=== PATIENT | male | born 1960 | race Hispanic/Latino ===

== ENCOUNTER 2022-01-30 17:43 | Inpatient (IN) ==
--- NOTE | 2022-01-30 18:11 | Internal Med History&Physical ---
HPI History of Present Illness Patient information: Note initiated : 01/30/22 at 6:09 pm Service Date, if different from initiated Date: [] Patient: Mike Moe a 61 y/o M admitted on for Fluid Overload/COVID +. Chief Complaint: [ESRD on hemodialysis] Chief complaint: ESRD on hemodialysis History of present illness: Mr. Moe is a 61 year old M history of end-stage renal disease on hemodialysis Friday, presenting with need for hemodialysis. His last dialysis session was 2 days ago on Friday, January 28, 2022. He was also being screened for COVID-pneumonia and he was actually screened at positive. Earlier today when he presented to the outpatient dialysis center for hemodialysis sections, he was being denied entry and was instead told to come to the hospital for dialysis sections. He ended up going to [facility] but they did not have dialysis capacity so they request patient to be transferred to our facility for hemodialysis. Of note, patient is currently on up to 4 L/min of supplemental oxygen's. Hospice Home Care Coordinator Dr. Rosa was contacted and he is willing to assist with hemodialysis tomorrow. Constitutional Constitutional: Absent chills, excessive sweating, fatigue, fever(s) or weakness EENT Eyes: Absent blurry vision, change in vision, loss of vision or other visual d isturbances Ears: Absent decreased hearing or tinnitus Nose, mouth and throat: Absent abnormal hearing, dry mouth, headache(s), nasal congestion or sore throat Cardiovascular Cardiovascular: Absent chest pain, chest pain at rest, edema, irregular heart rhythm or palpatations Respiratory Respiratory: Present dyspnea; Absent cough or wheezing Gastrointestinal Gastrointestinal: Absent abdominal pain, constipation, diarrhea, nausea or vomiting Musculoskeletal Musculoskeletal: Absent back pain, deformity, limited range of motion, muscle cramps, muscle weakness or numbness Integumentary Integumentary: Absent lesions, rash or wounds Neurological Neurological: Absent focal weakness, headache(s) or numbness Psychiatric Psychiatric: Absent anxiety, depression or hallucinations PFSH PFSH All Active Problems (Updated 01/30/22 @ 18:16 by Zach Murphy MD) COVID (Acute) ESRD on hemodialysis (Acute) EXAM Constitutional General appearance: cooperative and no acute distress Head Head exam: Present atraumatic and normocephalic Eye Eye exam: Present EOMI and PERRL ENT ENT exam: Present mucous membranes moist, normal exam and normal external ear exam Neck Neck exam: Present normal inspection; Absent lymphadenopathy, tenderness or thyromegaly Respiratory Respiratory exam: Present rhonchi; Absent accessory muscle use, respiratory distress or wheezes Cardiovascular Cardiovascular exam: Present normal rate and rhythm; Absent JVD GI/Abdominal GI/Abdominal exam: Present normal bowel sounds and soft; Absent organomegaly or tenderness Rectal Rectal exam: Present deferred Extremities Exam Extremities exam: Present full ROM, normal capillary refill and normal inspection; Absent tenderness Neurological Exam Neurological exam: Present alert, CN II-XII intact and oriented X3; Absent motor sensory deficit Psychiatric Psychiatric exam: Present normal affect and normal mood; Absent anxious or depressed Skin Skin exam: Present dry and intact A/P Assessment and plan (1) ESRD on hemodialysis: Status: Acute (2) COVID: Status: Acute Narrative A/P Narrative: Assessment and Plans: 1. ESRD on hemodialysis: Inpatient med surg telemetry Hospice Home Care Coordinator Dr. Rosa consulted for dialysis needs CMP in the morning to trend kidney functions and electrolyte levels framing manager 2. CoVID pneumonia: Isolation: airborne and contact Supplemental oxygen level Dexamethasone Remdesivir GI ppx: not currently indicated DVT ppx: Heparin Code status: Full Prognosis: guarded Disposition: inpatient med surg telemetry Time Spent With Patient Time: Total time spent is greater than 50% in coordination of care (as documented) at patient's floor/unit and/or counseling patient: Total time spent with greater than 50% in coordination of care (as documented) at patient's floor/unit and/or counseling patient:: 50 - 70 minutes
[2022-01-30] MEDS ORDERED: ACETAMINOPHEN 325 MG TABLET PO PRN (22:46)
[2022-01-30] MEDS ORDERED: IPRATROPIUM/ALBUTEROL 3 ML AMPUL.NEB NEB PRN (22:46)
[2022-01-30] MEDS ORDERED: SENNOSIDES 1 TABLET PO SCH (22:46)
[2022-01-30] MEDS ORDERED: DOCUSATE SODIUM 100 MG CAPSULE PO SCH (22:46)
[2022-01-30] MEDS ORDERED: REMDESIVIR 200 MG in 0.9 % SODIUM CHLORIDE 250 ML IV ONE (22:46)
[2022-01-30] MEDS ORDERED: ONDANSETRON 4 MG/2 ML VIAL IV PRN (22:46)
[2022-01-30] MEDS ORDERED: guaiFENesin/DEXTROMETHORPHAN ORAL SOL PO PRN (22:46)
[2022-01-30] MEDS ORDERED: HEPARIN 5,000 UNIT/ML VIAL ONE (23:51)
[2022-01-30] MEDS: NICOTINE 21 MG PATCH TOPICAL SCH (23:51)
[2022-01-30] MEDS: HEPARIN 5,000 UNIT/ML VIAL SQ SCH (23:52)
[2022-01-30] MEDS: LOPERAMIDE 2 MG CAPSULE PO PRN (23:52)
[2022-01-30] MEDS ORDERED: LOPERAMIDE 2 MG CAPSULE PO ONE (23:52)
[2022-01-30] MEDS ORDERED: NICOTINE 21 MG PATCH ONE (23:52)
[2022-01-30] MEDS: 0.9 % SODIUM CHLORIDE 10 ML SYRINGE IV SCH (23:52)
[2022-01-31] MEDS ORDERED: LOPERAMIDE 2 MG CAPSULE PO ONE (00:14)
[2022-01-31] MEDS: LOPERAMIDE 2 MG CAPSULE PO PRN (00:14)
[2022-01-31] MEDS: 0.9 % SODIUM CHLORIDE 10 ML SYRINGE IV SCH ×3 (05:51→20:30)
--- NOTE | 2022-01-31 06:12 | Nephrology Consult Note ---
HPI Data of Consult Patient: new to practice Consult date: 01/31/22 Requesting physician: Zach Murphy Primary Care Provider: PCP No Consult Narrative Patient Information: Note initiated : 01/31/22 at 6:10 am Patient: Mike Moe 61 y/o M admitted on 01/30/22 for Fluid Overload/COVID +. Chief Complaint: Shortness of breath Mike Moe is a 61-year-old male with end stage renal disease on hemodialysis admitted on 01/30/22. He is on hemodialysis Friday at [facility]. His last dialysis was on Friday (01/28/2022). He was tested positive for COVID and denied entry to his outpatient dialysis center. He presented to [facility] ED. He was transferred to our facility for hemodialysis. Nephrology consultation was requested for end stage renal disease. Chief complaint: Shortness of breath Reason for consult: End stage renal disease on hemodialysis cc:: CC: Zach Murphy MD Constitutional Constitutional: Present fatigue and weakness EENT Nose, mouth and throat: Absent nasal congestion or sore throat Cardiovascular Cardiovascular: Absent chest pain or palpatations Respiratory Respiratory: Present cough and dyspnea Gastrointestinal Gastrointestinal: Absent nausea or vomiting Integumentary Integumentary: Absent rash or wounds Neurological Neurological: Present weakness; Absent confusion Psychiatric Psychiatric: Absent anxiety or panic attacks Hematologic/Lymphatic Hematologic/Lymphatic: Absent easy bleeding Allergic/Immunologic Allergic/Immunologic: Absent tongue swelling or uticaria PFSH PFSH All Active Problems (Updated 01/31/22 @ 06:10 by Brian Rosa MD) Hyperkalemia (Acute) COVID (Acute) ESRD on hemodialysis (Chronic) MEDS/ALLERGIES Home Medications and Allergies Home Medications Medication Instructions Recorded Confirmed Type acetaminophen 500 mg tablet 1,000 mg PO BID 01/31/22 01/31/22 History blood sugar diagnostic 01/31/22 01/31/22 History calcitriol 0.5 mcg capsule 0.5 mcg PO DAILY 01/31/22 01/31/22 History calcium carbonate 500 mg calcium 1,000 mg PO DAILY 01/31/22 01/31/22 History (1,250 mg) chewable tablet cetirizine 5 mg tablet 5 mg PO DAILY 01/31/22 01/31/22 History clopidogrel 75 mg tablet 75 mg PO DAILY 01/31/22 01/31/22 History epoetin quan 10,000 unit/mL 10,000 unit IV 3XW 01/31/22 01/31/22 History injection solution gabapentin 100 mg capsule 100 mg PO TID 01/31/22 01/31/22 History loperamide 2 mg capsule 4 mg PO BID 01/31/22 01/31/22 History melatonin 3 mg tablet 3 mg PO HS PRN 01/31/22 01/31/22 History midodrine 2.5 mg tablet 2.5 mg PO TID 01/31/22 01/31/22 History omeprazole 20 mg capsule,delayed 20 mg PO BID 01/31/22 01/31/22 History release pramipexole 0.5 mg tablet 0.5 mg PO TID 01/31/22 01/31/22 History ropinirole 0.5 mg tablet 0.5 mg PO TID 01/31/22 01/31/22 History rosuvastatin 20 mg tablet 20 mg PO QHS 01/31/22 01/31/22 History sertraline 50 mg tablet 150 mg PO QDAY 01/31/22 01/31/22 History sevelamer carbonate 800 mg tablet 800 mg PO DAILY 01/31/22 01/31/22 History (Renvela) tacrolimus 1 mg capsule, 2 mg PO Q12H 01/31/22 01/31/22 History immediate-release trazodone 50 mg tablet 50 mg PO QHS 01/31/22 01/31/22 History Allergies Allergy/AdvReac Type Severity Reaction Status Date / Time vancomycin Allergy Intermediate Hives Verified 01/30/22 22:59 Physical Examination Vital Signs Vital signs: Temp Pulse Resp BP Pulse Ox 98.7 F 66 23 H 139/65 97 01/31/22 04:27 01/31/22 04:27 01/31/22 04:27 01/31/22 04:27 01/31/22 04:27 General Appearance General appearance: appears started age and chronically ill EENT EENT: mucous membranes dry Respiratory Respiratory: course breath sounds Cardiovascular Cardiology: no edema Gastrointestinal Gastrointestinal: no tenderness Integumentary Integumentary: no rash Neurologic Neurologic: no focal deficit and alert and oriented x3 Musculoskeletal Musculoskeletal: deformities (bilateral amputations) Psychiatric Psychiatric: mood/affect appropriate and cooperative Results Lab Results Result Diagrams: 01/31/22 05:55 01/31/22 05:55 A/P Assessment and plan (1) ESRD on hemodialysis: Assessment and plan: Mike Moe is a 61-year-old male with end stage renal disease on hemodialysis admitted on 01/30/22. He is on hemodialysis Friday at [facility]. His last dialysis was on Friday (01/28/2022). [facility] [place] to [facility]. He was transferred to our facility for hemodialysis. Nephrology consultation was requested for end stage renal disease. End stage renal disease on hemodialysis. Suspected fluid overload. Hyperkalemia. Metabolic acidosis. Hyperphosphatemia. Left arm AV fistula. Chronic anemia due to ESRD. Liver transplant at [facility]. Recommendations/Plan: Renvela 800 mg PO TID with meals and Calcium Carbonate 500 mg PO TID with meals for hyperphosphatemia. Midodrine 5 mg PO PRN with hemodialysis for hypotension. tacrolimus 2 mg twice every 12 hours for liver transplant. Aranesp 100 mcg SC will be given if Hb stays below 10. Hemodialysis today and tomorrow. Status: Chronic Time Spent With Patient Time: Total time spent is greater than 50% in coordination of care (as documented) at patient's floor/unit and/or counseling patient:
[2022-01-31 07:32] LABS: ALT/SGPT 7 U/L (<40); AST/SGOT 12 U/L (<40); Albumin 3.3 gm/dL (3.2-5.2); Albumin/Globulin Ratio 0.9 (1.0-2.3); Alkaline Phosphatase 74 U/L (39-117); Bilirubin,Total 0.5 mg/dL (0.1-1.0); Blood Urea Nitrogen 35 mg/dL (6-20); Calcium 8.4 mg/dL (8.6-10.4); Carbon Dioxide 21 mmol/L (22-30); Chloride 97 mmol/L (96-108); Globulin 3.8 gm/dL (2.2-3.7); Glomerular Filtration Rate 6; Glucose 89 mg/dL (70-105); Phosphorous 8.3 mg/dL (2.5-4.5)
[2022-01-31 08:54] LABS: Basophils # (Auto) 0.01 K/mcL (0.00-0.30); Basophils % (Auto) 0.3 % (0.0-2.0); Eosinophils # (Auto) 0 K/mcL (0.00-0.70); Eosinophils % (Auto) 0 % (0.0-7.0); Hematocrit 31.5 % (40.1-51.0); Hemoglobin 9.4 g/dL (13.7-17.5); Lymphocytes # (Auto) 0.47 K/mcL (1.50-4.80); Lymphocytes % (Auto) 14.2 % (15.5-49.0); Mean Cell Volume 106.4 fL (80.0-100.0); Mean Corpuscular HGB Conc 29.8 g/dL (31.0-36.0); Mean Platelet Volume 11.8 fL (7.4-10.4); Monocytes # (Auto) 0.28 K/mcL (0.10-0.90); Monocytes % (Auto) 8.5 % (1.0-12.0); Platelet Count 72 K/mcL (140-440); RBC 2.96 M/mcL (4.63-6.08); WBC 3.3 K/mcL (4.5-11.0)
[2022-01-31] MEDS ORDERED: MIDODRINE 5 MG TABLET PO PRN (09:43)
[2022-01-31] MEDS: HEPARIN 5,000 UNIT/ML VIAL SQ SCH ×2 (09:51→20:27)
[2022-01-31] MEDS ORDERED: MELATONIN 3 MG TABLET PO PRN (10:57)
[2022-01-31] MEDS ORDERED: EPOETIN ALFA 10000 UNIT/ML IV SCH (11:00)
[2022-01-31] MEDS ORDERED: TACROLIMUS 1 MG CAPSULE PO SCH (11:00)
--- NOTE | 2022-01-31 11:03 | Internal Med Progress Note ---
SUBJECTIVE Subjective Patient information: Note initiated : 01/31/22 at 10:59 am Service Date, if different from initiated Date: [] Patient: Mike Moe a 61 y/o M admitted on 01/30/22 for Fluid Overload/COVID +. Chief Complaint: [] Interval history: History of present illness: Mr. Moe is a 61 year old M history of end-stage renal disease on hemodialysis Friday, presenting with need for hemodialysis. His last dialysis session was 2 days ago on Friday, January 28, 2022. He was also being screened for COVID-pneumonia and he was actually screened at positive. Earlier today when he presented to the outpatient dialysis center for hemodialysis sections, he was being denied entry and was instead told to come to the hospital for dialysis sections. He ended up going to [facility] but they did not have dialysis capacity so they request patient to be transferred to our facility for hemodialysis. Of note, patient is currently on up to 4 L/min of supplemental oxygen's. Activity Aid Dr. Rosa was contacted and he is willing to assist with hemodialysis tomorrow. 01/31: Afebrile overnight. Patient is currently on 5 L/min of supplemental oxygen. Patient is currently receiving hemodialysis. Patient is committing of shortness of breath. He is complaining of productive cough with clear sputum. He is committing of shaking chills. He denies any fever or diaphoresis. He denies any respiratory wheezings. Continue hemodialysis today and tomorrow as per motor vehicle licence examiner. Continue remdesivir and dexamethasone together with supplemental oxygen for treatment of COVID-pneumonia. Constitutional Vitals: Vital Signs Temp Pulse Resp BP Pulse Ox 37.0 C 82 23 H 173/78 98 01/31/22 08:00 01/31/22 08:01 01/31/22 08:01 01/31/22 08:00 01/31/22 08:01 Period Temp Pulse Resp BP Sys/Ludwig Pulse Ox Last 24 Hr 37.0 C-37.1 C 64-82 16-46 136-173/65-78 80-100 Intake and Output 01/30/22 01/31/22 01/31/22 21:59 05:59 13:59 Intake Total 300 Output Total 0 Balance 300 Weight 68.765 kg Intake & Output: Intake & Output 01/30/22 01/31/22 01/31/22 21:59 05:59 13:59 Intake Total 300 Output Total 0 Balance 300 Weight 68.765 kg Intake: IV 250 Veklury 200 mg In Sodium 250 Chloride 0.9% 250 ml @ 500 mls/ hr IV ONCE ONE Rx#:[id number] Oral 50 Output: Void Amount 0 # of times incontinent of urine 0 Other: Meal Breakfast Percent of Meal Consumed 100% Feeding Ability Assist with Tray Set Up Stool Size Large Stool Color Brown Dre Colored Stool Consistency Liquid Loose # Voids 0 # of times incontinent of 1 Bowels Head Head exam: Present atraumatic and normal inspection Eye Eye exam: Present normal appearance ENT ENT exam: Present mucous membranes moist, normal exam and normal external ear exam Additional comments: Nasal cannula in place Neck Neck exam: Present normal inspection Respiratory Respiratory exam: Present rhonchi; Absent wheezes Cardiovascular Cardiovascular exam: Present normal rate and rhythm GI/Abdominal GI/Abdominal exam: Present normal bowel sounds Extremities Exam Extremities exam: Present full ROM; Absent normal inspection Additional comments: Bilateral AKA Back Exam Back exam: Present normal inspection Neurological Exam Neurological exam: Present alert and oriented X3 Skin Skin exam: Present intact and warm OBJ DATA Labs CBC & Chem 7: 01/31/22 05:55 01/31/22 05:55 Labs: Abnormal Lab Results 01/31/22 01/31/22 05:55 05:55 WBC 3.3 L RBC 2.96 L Hgb 9.4 L Hct 31.5 L MCV 106.4 H MCHC 29.8 L RDW 16.0 H Plt Count 72 L MPV 11.8 H Lymph % (Auto) 14.2 L Lymph # (Auto) 0.47 L Potassium 5.4 H Carbon Dioxide 21 L BUN 35 H Creatinine 8.9 H* Calcium 8.4 L Phosphorus 8.3 H* Globulin 3.8 H Albumin/Globulin Ratio 0.9 L Meds: Medications Acetaminophen (Acetaminophen 325 Mg Tablet) 650 mg PO Q6HP PRN; Protocol PRN Reason: Per Pain Protocol/Fever > 101 Albuterol/Ipratropium (Ipratropium/Albuterol 3 Ml Ampul.Neb) 3 ml NEB Q4HRT PRN PRN Reason: Wheezing Calcium Carbonate/Glycine (Calcium Carbonate 1,250 Mg/5 Ml Oral.Susp) 500 mg PO TID ERINN Dexamethasone (Dexamethasone 4 Mg Tablet) 6 mg PO DAILY [facility] Guaifenesin (Guaifenesin/Dextromethorphan Oral Zehra) 10 ml PO Q4HP PRN PRN Reason: Cough Heparin Sodium (Porcine) (Heparin 5,000 Unit/Ml Vial) 5,000 unit SQ Q12 [facility] Last Admin: 01/31/22 09:51 Dose: Not Given Documented by: REMDESIVIR 100 mg/ Sodium (Chloride) 250 mls @ 500 mls/hr IV Q24H [facility] Stop: 02/07/22 14:59 Loperamide HCl (Loperamide 2 Mg Capsule) 2 mg PO PRN PRN PRN Reason: Diarrhea Last Admin: 01/31/22 00:14 Dose: 2 mg Documented by: Midodrine (Midodrine 5 Mg Tablet) 5 mg PO PRN PRN PRN Reason: Hypotension Nicotine (Nicotine 21 Mg Patch) 21 mg TOPICAL DAILY@1000 ERINN Last Admin: 01/30/22 23:51 Dose: 21 mg Documented by: Ondansetron HCl (Ondansetron 4 Mg/2 Ml Vial) 4 mg IV Q6HP PRN PRN Reason: Nausea And Vomiting Sevelamer Carbonate (Sevelamer 800 Mg Tablet) 800 mg PO TIDCC [facility] Sodium Chloride (0.9 % Sodium Chloride 10 Ml Syringe) 10 ml IV Q8 [facility] Last Admin: 01/31/22 05:51 Dose: 10 ml Documented by: Tacrolimus (Tacrolimus 1 Mg Capsule) 2 mg PO Q12 [facility] Trazodone HCl (Trazodone Hcl 50 Mg Tablet) 25 mg PO HSP PRN PRN Reason: Insomnia A/P Assessment and plan (1) ESRD on hemodialysis: Status: Chronic (2) COVID: Status: Acute Narrative A/P Narrative: Assessment and Plans: 1. ESRD on hemodialysis: Inpatient med surg telemetry Activity Aid Dr. Rosa consulted for dialysis needs, hemodialysis today and tomorrow CMP in the morning to trend kidney functions and electrolyte levels clinical manager 2. CoVID pneumonia: Isolation: airborne and contact Supplemental oxygen therapy, currently at 5L/min Dexamethasone Remdesivir 3. Hyperkalemia: Activity Aid Dr. Rosa consulted for dialysis needs, hemodialysis today and tomorrow CMP in the morning to trend potassium level 4. Anemia, macrocytic normochromic: cbc w/ auto diff in the morning to trend H/H GI ppx: PO PPI from home regimen DVT ppx: Heparin Code status: Full Prognosis: guarded Disposition: inpatient med surg telemetry Time Spent With Patient Time: Total time spent is greater than 50% in coordination of care (as documented) at patient's floor/unit and/or counseling patient: Total time spent with greater than 50% in coordination of care (as documented) at patient's floor/unit and/or counseling patient:: 35 - 50 minutes QUALITY VTE Deep Vein Thrombosis/Pulmonary Embolism Present on Admission: No
[2022-01-31] MEDS: PRAMIPEXOLE 0.25 MG TABLET PO SCH ×2 (14:50→20:28)
[2022-01-31] MEDS: rOPINIRole 0.25 MG TABLET PO SCH ×2 (14:50→20:28)
[2022-01-31] MEDS: SEVELAMER 800 MG TABLET PO SCH ×2 (14:50→18:25)
[2022-01-31] MEDS: MIDODRINE 5 MG TABLET PO SCH ×2 (14:51→20:29)
[2022-01-31] MEDS: DEXAMETHASONE 4 MG TABLET PO SCH (14:51)
[2022-01-31] MEDS: GABAPENTIN 100 MG CAPSULE PO SCH ×2 (14:51→20:28)
[2022-01-31] MEDS: NICOTINE 21 MG PATCH TOPICAL SCH (14:52)
[2022-01-31] MEDS: TACROLIMUS 1 MG CAPSULE PO SCH ×2 (15:05→20:27)
[2022-01-31] MEDS: CALCIUM CARBONATE 1,250 MG/5 ML ORAL.SUSP PO SCH ×2 (15:06→20:27)
[2022-01-31] MEDS: REMDESIVIR 100 MG in 0.9 % SODIUM CHLORIDE 250 ML IV SCH (15:11)
[2022-01-31] MEDS: OMEPRAZOLE 20 MG CAPSULE PO SCH (20:28)
[2022-01-31] MEDS: SIMVASTATIN 40 MG TABLET PO SCH (20:29)
[2022-01-31] MEDS: LOPERAMIDE 2 MG CAPSULE PO SCH (20:29)
[2022-01-31] MEDS: ACETAMINOPHEN 500 MG TABLET PO SCH (20:29)
[2022-02-01] MEDS: 0.9 % SODIUM CHLORIDE 10 ML SYRINGE IV SCH ×3 (05:44→20:26)
[2022-02-01 07:22] LABS: Basophils # (Auto) 0 K/mcL (0.00-0.30); Basophils % (Auto) 0 % (0.0-2.0); Eosinophils # (Auto) 0 K/mcL (0.00-0.70); Eosinophils % (Auto) 0 % (0.0-7.0); Hematocrit 28.5 % (40.1-51.0); Hemoglobin 8.7 g/dL (13.7-17.5); Lymphocytes # (Auto) 0.18 K/mcL (1.50-4.80); Lymphocytes % (Auto) 14.3 % (15.5-49.0); Mean Cell Volume 104.4 fL (80.0-100.0); Mean Corpuscular HGB Conc 30.5 g/dL (31.0-36.0); Mean Platelet Volume 11.6 fL (7.4-10.4); Monocytes # (Auto) 0.09 K/mcL (0.10-0.90); Monocytes % (Auto) 7.1 % (1.0-12.0); Neutrophils % (Auto) 78.6 % (38.0-78.0); Platelet Count 71 K/mcL (140-440); RBC 2.73 M/mcL (4.63-6.08); Red Cell Distribution Width 15.3 % (11.5-14.5); WBC 1.3 K/mcL (4.5-11.0)
[2022-02-01 08:07] LABS: ALT/SGPT 6 U/L (<40); AST/SGOT 11 U/L (<40); Albumin 2.8 gm/dL (3.2-5.2); Albumin/Globulin Ratio 0.7 (1.0-2.3); Alkaline Phosphatase 76 U/L (39-117); Bilirubin,Total 0.5 mg/dL (0.1-1.0); Blood Urea Nitrogen 32 mg/dL (6-20); Calcium 8.4 mg/dL (8.6-10.4); Carbon Dioxide 26 mmol/L (22-30); Chloride 94 mmol/L (96-108); Globulin 3.8 gm/dL (2.2-3.7); Glomerular Filtration Rate 10; Glucose 165 mg/dL (70-105)
[2022-02-01] MEDS ORDERED: CALCIUM CARBONATE 500 MG TAB.CHEW PO SCH (09:00)
[2022-02-01] MEDS ORDERED: SEVELAMER 800 MG TABLET PO SCH (09:00)
[2022-02-01] MEDS ORDERED: DARBEPOETIN ALFA 100 MCG/ML VIAL SQ ONE (09:05)
--- NOTE | 2022-02-01 09:08 | Nephrology Progress Note ---
SUBJECTIVE Subjective Patient information: Note initiated : 02/01/22 at 9:06 am Patient: Mike Moe a 61 y/o M admitted on 01/30/22 for Fluid Overload/COVID +. Chief Complaint: Weakness Pertinent ROS: Weakness Constitutional Vitals: Vital Signs Temp Pulse Resp BP Pulse Ox 97.1 F 71 20 148/70 99 02/01/22 04:00 02/01/22 04:00 02/01/22 04:00 02/01/22 04:00 02/01/22 04:00 Period Temp Pulse Resp BP Sys/Ludwig Pulse Ox Last 24 Hr 97.1 F-99.4 F 53-99 15-33 103-165/41-85 83-100 Intake and Output 01/31/22 02/01/22 02/01/22 21:59 05:59 13:59 Intake Total 1170 300 Output Total 2450 Balance -1280 300 Weight 154 lb 9.6 oz Intake & Output: Intake & Output 01/31/22 02/01/22 02/01/22 21:59 05:59 13:59 Intake Total 1170 300 Output Total 2450 Balance -1280 300 Weight 154 lb 9.6 oz Intake: IV 250 Veklury 100 mg In Sodium 250 Chloride 0.9% 250 ml @ 500 mls/ hr IV Q24H [facility] Rx#:[id number] Oral 920 300 Output: Hemodialysis UF 2450 Other: Meal Dinner Percent of Meal Consumed 50% Feeding Ability Assist with Tray Set Up General appearance: cooperative and no acute distress Head Head exam: Present normal inspection Eye Eye exam: Present normal appearance ENT ENT exam: Present mucous membranes moist Respiratory Respiratory exam: Absent respiratory distress Cardiovascular Cardiovascular exam: Present normal rate and rhythm GI/Abdominal GI/Abdominal exam: Present soft; Absent tenderness Extremities Exam Extremities exam: Absent joint swelling or pedal edema Neurological Exam Neurological exam: Present alert and oriented X3 Psychiatric Psychiatric exam: Present normal affect and normal mood Skin Skin exam: Present warm; Absent rash A/P Assessment and plan (1) ESRD on hemodialysis: Assessment and plan: Mike Moe is a 61-year-old male with end stage renal disease on hemodialysis admitted on 01/30/22. He is on hemodialysis Friday at [facility]. His last dialysis was on Friday (01/28/2022). [facility] [place]He [facility] to [facility] ED. He was transferred to our facility for hemodialysis. Nephrology consultation was requested for end stage renal disease. End stage renal disease on hemodialysis. Suspected fluid overload, improved. Chronic hypotension on Midodrine 5 mg PO PRN with hemodialysis. Hyperkalemia, resolved. Metabolic acidosis, resolved. Hyperphosphatemia on Renvela 800 mg PO TID with meals and Calcium Carbonate 500 mg PO TID with meals. Left arm AV fistula. Chronic anemia due to ESRD. Liver transplant at [facility] on Tacrolimus 2 mg twice every 12 hours. Recommendations/Plan: Aranesp 100 mcg SC 100 mcg SC x 1 for Hb below 10. Hemodialysis today then on Friday, Friday, Friday. Status: Chronic Time Spent With Patient Time: Total time spent is greater than 50% in coordination of care (as documented) at patient's floor/unit and/or counseling patient:
[2022-02-01] MEDS: CALCIUM CARBONATE 1,250 MG/5 ML ORAL.SUSP PO SCH ×4 (09:13→21:28)
[2022-02-01] MEDS: HEPARIN 5,000 UNIT/ML VIAL SQ SCH ×3 (09:13→20:21)
[2022-02-01] MEDS: SEVELAMER 800 MG TABLET PO SCH ×3 (09:13→16:50)
[2022-02-01] MEDS: GABAPENTIN 100 MG CAPSULE PO SCH ×3 (09:14→20:24)
[2022-02-01] MEDS: rOPINIRole 0.25 MG TABLET PO SCH ×3 (09:14→20:23)
[2022-02-01] MEDS: MIDODRINE 5 MG TABLET PO SCH ×3 (09:14→20:26)
[2022-02-01] MEDS: LOPERAMIDE 2 MG CAPSULE PO SCH ×2 (09:14→20:24)
[2022-02-01] MEDS: PRAMIPEXOLE 0.25 MG TABLET PO SCH ×3 (09:14→20:24)
[2022-02-01] MEDS: ACETAMINOPHEN 500 MG TABLET PO SCH ×3 (09:15→20:23)
[2022-02-01] MEDS: CETIRIZINE 10 MG TABLET PO SCH ×2 (09:15→14:56)
[2022-02-01] MEDS: OMEPRAZOLE 20 MG CAPSULE PO SCH ×2 (09:17→20:26)
--- NOTE | 2022-02-01 09:32 | Internal Med Progress Note ---
SUBJECTIVE Subjective Patient information: Note initiated : 02/01/22 at 9:30 am Service Date, if different from initiated Date: [] Patient: Mike Moe a 61 y/o M admitted on 01/30/22 for Fluid Overload/COVID +. Chief Complaint: [] Interval history: History of present illness: Mr. Moe is a 61 year old M history of end-stage renal disease on hemodialysis Friday, presenting with need for hemodialysis. His last dialysis session was 2 days ago on Friday, January 28, 2022. He was also being screened for COVID-pneumonia and he was actually screened at positive. Earlier today when he presented to the outpatient dialysis center for hemodialysis sections, he was being denied entry and was instead told to come to the hospital for dialysis sections. He ended up going to [facility] but they did not have dialysis capacity so they request patient to be transferred to our facility for hemodialysis. Of note, patient is currently on up to 4 L/min of supplemental oxygen's. Community Affairs Director Dr. Rosa was contacted and he is willing to assist with hemodialysis tomorrow. 01/31: Afebrile overnight. Patient is currently on 5 L/min of supplemental oxygen. Patient is currently receiving hemodialysis. Patient is committing of shortness of breath. He is complaining of productive cough with clear sputum. He is committing of shaking chills. He denies any fever or diaphoresis. He denies any respiratory wheezings. Continue hemodialysis today and tomorrow as per counseling center director. Continue remdesivir and dexamethasone together with supplemental oxygen for treatment of COVID-pneumonia. 02/01: Afebrile overnight. The patient is currently on 4 L/min of supplemental oxygen's. Patient is currently receiving hemodialysis. Patient is complaining of improving degree of shortness of breath. He is complaining of productive c ough with clear sputum productions. He denies any subjective fever or shaking chills. Poor appetite. Mild general body weakness. After today's hemodialysis sections, the next section will be next Friday. Continue remdesivir and dexamethasone together with supplemental oxygen for treatment of COVID-pneumonia. Constitutional Vitals: Vital Signs Temp Pulse Resp BP Pulse Ox 36.3 C 80 20 119/82 99 02/01/22 09:17 02/01/22 09:17 02/01/22 08:26 02/01/22 09:17 02/01/22 04:00 Period Temp Pulse Resp BP Sys/Ludwig Pulse Ox Last 24 Hr 36.2 C-37.4 C 53-99 15-33 103-165/41-85 83-100 Intake and Output 01/31/22 02/01/22 02/01/22 21:59 05:59 13:59 Intake Total 1170 300 Output Total 2450 Balance -1280 300 Weight 70.125 kg Intake & Output: Intake & Output 01/31/22 02/01/22 02/01/22 21:59 05:59 13:59 Intake Total 1170 300 Output Total 2450 Balance -1280 300 Weight 70.125 kg Intake: IV 250 Veklury 100 mg In Sodium 250 Chloride 0.9% 250 ml @ 500 mls/ hr IV Q24H [facility] Rx#:[id number] Oral 920 300 Output: Hemodialysis UF 2450 Other: Meal Dinner Percent of Meal Consumed 50% Feeding Ability Assist with Tray Set Up Stool Size Moderate Stool Color Brown Stool Consistency Normal for Patient Head Head exam: Present atraumatic and normal inspection Eye Eye exam: Present normal appearance ENT ENT exam: Present mucous membranes moist, normal exam and normal external ear exam Additional comments: Nasal cannula in place Neck Neck exam: Present normal inspection Respiratory Respiratory exam: Present normal respiratory exam Cardiovascular Cardiovascular exam: Present normal rate and rhythm Additional comments: AV fistula left arm GI/Abdominal GI/Abdominal exam: Present normal bowel sounds Extremities Exam Extremities exam: Present full ROM; Absent normal inspection Additional comments: Bilateral AKA Back Exam Back exam: Present normal inspection Neurological Exam Neurological exam: Present alert and oriented X3 Skin Skin exam: Present intact and warm OBJ DATA Labs CBC & Chem 7: 02/01/22 05:37 02/01/22 05:37 Labs: Abnormal Lab Results 02/01/22 02/01/22 01/31/22 05:37 05:37 05:55 WBC 1.3 L RBC 2.73 L Hgb 8.7 L Hct 28.5 L MCV 104.4 H MCHC 30.5 L RDW 15.3 H Plt Count 71 L MPV 11.6 H Neut % (Auto) 78.6 H Lymph % (Auto) 14.3 L Lymph # (Auto) 0.18 L Gem # (Auto) 0.09 L Absolute Neutrophils 0.99 L* Sodium 132 L Potassium 5.4 H Chloride 94 L Carbon Dioxide 21 L BUN 32 H 35 H Creatinine 5.8 H* 8.9 H* Glucose 165 H Calcium 8.4 L 8.4 L Phosphorus 8.3 H* Albumin 2.8 L Globulin 3.8 H 3.8 H Albumin/Globulin Ratio 0.7 L 0.9 L 01/31/22 05:55 WBC 3.3 L RBC 2.96 L Hgb 9.4 L Hct 31.5 L MCV 106.4 H MCHC 29.8 L RDW 16.0 H Plt Count 72 L MPV 11.8 H Neut % (Auto) Lymph % (Auto) 14.2 L Lymph # (Auto) 0.47 L Gem # (Auto) Absolute Neutrophils Sodium Potassium Chloride Carbon Dioxide BUN Creatinine Glucose Calcium Phosphorus Albumin Globulin Albumin/Globulin Ratio Meds: Medications Acetaminophen (Acetaminophen 325 Mg Tablet) 650 mg PO Q6HP PRN; Protocol PRN Reason: Per Pain Protocol/Fever > 101 Last Admin: 01/31/22 12:15 Dose: 650 mg Documented by: Acetaminophen (Acetaminophen 500 Mg Tablet) 1,000 mg PO BID [facility]; Protocol Last Admin: 02/01/22 09:15 Dose: Not Given Documented by: Albuterol/Ipratropium (Ipratropium/Albuterol 3 Ml Ampul.Neb) 3 ml NEB Q4HRT PRN PRN Reason: Wheezing Calcitriol (Calcitriol 0.25 Mcg Capsule) 0.5 mcg PO DAILY [facility] Calcium Carbonate/Glycine (Calcium Carbonate 1,250 Mg/5 Ml Oral.Susp) 500 mg PO TID [facility] Last Admin: 02/01/22 09:13 Dose: Not Given Documented by: Cetirizine HCl (Cetirizine 10 Mg Tablet) 5 mg PO DAILY [facility] Last Admin: 02/01/22 09:15 Dose: Not Given Documented by: Clopidogrel Bisulfate (Clopidogrel 75 Mg Tablet) 75 mg PO DAILY [facility] Darbepoetin Jordan (Darbepoetin Jordan 100 Mcg/Ml Vial) 100 mcg SQ ONCE ONE Stop: 02/01/22 09:06 Dexamethasone (Dexamethasone 4 Mg Tablet) 6 mg PO DAILY [facility] Last Admin: 01/31/22 14:51 Dose: 6 mg Documented by: Gabapentin (Gabapentin 100 Mg Capsule) 100 mg PO TID [facility] Last Admin: 02/01/22 09:14 Dose: Not Given Documented by: Guaifenesin (Guaifenesin/Dextromethorphan Oral Zehra) 10 ml PO Q4HP PRN PRN Reason: Cough Heparin Sodium (Porcine) (Heparin 5,000 Unit/Ml Vial) 5,000 unit SQ Q12 [facility] Last Admin: 02/01/22 09:13 Dose: Not Given Documented by: REMDESIVIR 100 mg/ Sodium (Chloride) 250 mls @ 500 mls/hr IV Q24H [facility] Stop: 02/07/22 14:59 Last Infusion: 01/31/22 15:44 Dose: Infused Documented by: Loperamide HCl (Loperamide 2 Mg Capsule) 2 mg PO PRN PRN PRN Reason: Diarrhea Last Admin: 01/31/22 00:14 Dose: 2 mg Documented by: Loperamide HCl (Loperamide 2 Mg Capsule) 4 mg PO BID [facility] Last Admin: 02/01/22 09:14 Dose: Not Given Documented by: Melatonin (Melatonin 3 Mg Tablet) 3 mg PO HS PRN PRN Reason: Insomnia Midodrine (Midodrine 5 Mg Tablet) 5 mg PO PRN PRN PRN Reason: Hypotension Midodrine (Midodrine 5 Mg Tablet) 5 mg PO TID [facility] Last Admin: 02/01/22 09:14 Dose: Not Given Documented by: Nicotine (Nicotine 21 Mg Patch) 21 mg TOPICAL DAILY@1000 [facility] Last Admin: 01/31/22 14:52 Dose: 21 mg Documented by: Omeprazole (Omeprazole 20 Mg Capsule) 20 mg PO BID [facility] Last Admin: 02/01/22 09:17 Dose: Not Given Documented by: Ondansetron HCl (Ondansetron 4 Mg/2 Ml Vial) 4 mg IV Q6HP PRN PRN Reason: Nausea And Vomiting Pramipexole Dihydrochloride (Pramipexole 0.25 Mg Tablet) 0.5 mg PO TID [facility] Last Admin: 02/01/22 09:14 Dose: Not Given Documented by: Ropinirole HCl (Ropinirole 0.25 Mg Tablet) 0.5 mg PO TID [facility] Last Admin: 02/01/22 09:14 Dose: Not Given Documented by: Sertraline HCl (Sertraline 50 Mg Tablet) 150 mg PO QDAY [facility] Sevelamer Carbonate (Sevelamer 800 Mg Tablet) 800 mg PO TIDCC [facility] Last Admin: 02/01/22 09:13 Dose: Not Given Documented by: Simvastatin (Simvastatin 40 Mg Tablet) 80 mg PO QHS [facility] Last Admin: 01/31/22 20:29 Dose: 80 mg Documented by: Sodium Chloride (0.9 % Sodium Chloride 10 Ml Syringe) 10 ml IV Q8 [facility] Last Admin: 02/01/22 05:44 Dose: 10 ml Documented by: Tacrolimus (Tacrolimus 1 Mg Capsule) 2 mg PO Q12 [facility] Last Admin: 01/31/22 20:27 Dose: 2 mg Documented by: Trazodone HCl (Trazodone Hcl 50 Mg Tablet) 25 mg PO HSP PRN PRN Reason: Insomnia A/P Assessment and plan (1) ESRD on hemodialysis: Status: Chronic (2) COVID: Status: Acute Narrative A/P Narrative: Assessment and Plans: 1. ESRD on hemodialysis: Inpatient med surg telemetry Community Affairs Director Dr. Rosa consulted for dialysis needs, HD today then Friday (outpatient if discharged before that) CMP in the morning to trend kidney functions and electrolyte levels utilization manager 2. CoVID pneumonia: Isolation: airborne and contact Supplemental oxygen therapy, currently at 4L/min Dexamethasone Remdesivir 3. Hyperkalemia: RESOLVED Community Affairs Director Dr. Rosa consulted for dialysis needs, hemodialysis today and tomorrow CMP in the morning to trend potassium level 4. Anemia, macrocytic normochromic: cbc w/ auto diff in the morning to trend H/H GI ppx: PO PPI from home regimen DVT ppx: Heparin Code status: Full Prognosis: guarded Disposition: inpatient med surg telemetry Time Spent With Patient Time: Total time spent is greater than 50% in coordination of care (as documented) at patient's floor/unit and/or counseling patient: Total time spent with greater than 50% in coordination of care (as documented) at patient's floor/unit and/or counseling patient:: 35 - 50 minutes QUALITY VTE Deep Vein Thrombosis/Pulmonary Embolism Present on Admission: No
--- NOTE | 2022-02-01 13:03 | Internal Med Progress Note ---
SUBJECTIVE Subjective Patient information: Note initiated : 02/01/22 at 12:59 pm Service Date, if different from initiated Date: [] Patient: Mike Moe a 61 y/o M admitted on 01/30/22 for Fluid Overload/COVID +. Chief Complaint: [] Interval history: History of present illness: Mr. Moe is a 61 year old M history of end-stage renal disease on hemodialysis Friday, presenting with need for hemodialysis. His last dialysis session was 2 days ago on Friday, January 28, 2022. He was also being screened for COVID-pneumonia and he was actually screened at positive. Earlier today when he presented to the outpatient dialysis center for hemodialysis sections, he was being denied entry and was instead told to come to the hospital for dialysis sections. He ended up going to [facility] but they did not have dialysis capacity so they request patient to be transferred to our facility for hemodialysis. Of note, patient is currently on up to 4 L/min of supplemental oxygen's. Crop Research Scientist Dr. Rosa was contacted and he is willing to assist with hemodialysis tomorrow. 01/31: Afebrile overnight. Patient is currently on 5 L/min of supplemental oxygen. Patient is currently receiving hemodialysis. Patient is committing of shortness of breath. He is complaining of productive cough with clear sputum. He is committing of shaking chills. He denies any fever or diaphoresis. He denies any respiratory wheezings. Continue hemodialysis today and tomorrow as per train station agent. Continue remdesivir and dexamethasone together with supplemental oxygen for treatment of COVID-pneumonia. 02/01: Afebrile overnight. The patient is currently on 4 L/min of supplemental oxygen's. Patient is currently receiving hemodialysis. Patient is complaining of improving degree of shortness of breath. He is complaining of productive cough with clear sputum productions. He denies any subjective fever or shaking chills. Poor appetite. Mild general body weakness. After today's hemodialysis sections, the next section will be next Friday. Continue remdesivir and dexamethasone together with supplemental oxygen for treatment of COVID-pneumonia. Constitutional Vitals: Vital Signs Temp Pulse Resp BP Pulse Ox 97.3 F 86 20 111/66 99 02/01/22 09:42 02/01/22 12:55 02/01/22 09:42 02/01/22 12:55 02/01/22 09:42 Period Temp Pulse Resp BP Sys/Ludwig Pulse Ox Last 24 Hr 97.1 F-99.4 F 52-108 15-33 103-153/41-85 84-100 Intake and Output 01/31/22 02/01/22 02/01/22 21:59 05:59 13:59 Intake Total 1170 300 Output Total 2450 Balance -1280 300 Weight 70.125 kg Intake & Output: Intake & Output 01/31/22 02/01/22 02/01/22 21:59 05:59 13:59 Intake Total 1170 300 Output Total 2450 Balance -1280 300 Weight 70.125 kg Intake: IV 250 Veklury 100 mg In Sodium 250 Chloride 0.9% 250 ml @ 500 mls/ hr IV Q24H [facility] Rx#:[id number] Oral 920 300 Output: Hemodialysis UF 2450 Other: Meal Dinner Percent of Meal Consumed 50% Feeding Ability Assist with Tray Set Up Stool Size Small Stool Color Brown Stool Consistency Soft # Bowel Movements 1 Exam: General: Alert, Awake, No acute Distress Eyes/N/T: EOMI, Head/Neck: neck supple, CV: RRR, No murmurs, Pulm: Clear b/l, no wheezing/rhonchi/rales Abd: soft, nontender, +BS x4 Ext: no clubbing/cyanosis/edema, AV fistula left arm Neuro: Alert, no focal deficits, moves all extremities, Skin: warm/dry OBJ DATA Labs CBC & Chem 7: 02/01/22 05:37 02/01/22 05:37 Labs: Abnormal Lab Results 02/01/22 02/01/22 01/31/22 05:37 05:37 05:55 WBC 1.3 L RBC 2.73 L Hgb 8.7 L Hct 28.5 L MCV 104.4 H MCHC 30.5 L RDW 15.3 H Plt Count 71 L MPV 11.6 H Neut % (Auto) 78.6 H Lymph % (Auto) 14.3 L Lymph # (Auto) 0.18 L Barron # (Auto) 0.09 L Absolute Neutrophils 0.99 L* Sodium 132 L Potassium 5.4 H Chloride 94 L Carbon Dioxide 21 L BUN 32 H 35 H Creatinine 5.8 H* 8.9 H* Glucose 165 H Calcium 8.4 L 8.4 L Phosphorus 8.3 H* Albumin 2.8 L Globulin 3.8 H 3.8 H Albumin/Globulin Ratio 0.7 L 0.9 L 01/31/22 05:55 WBC 3.3 L RBC 2.96 L Hgb 9.4 L Hct 31.5 L MCV 106.4 H MCHC 29.8 L RDW 16.0 H Plt Count 72 L MPV 11.8 H Neut % (Auto) Lymph % (Auto) 14.2 L Lymph # (Auto) 0.47 L Barron # (Auto) Absolute Neutrophils Sodium Potassium Chloride Carbon Dioxide BUN Creatinine Glucose Calcium Phosphorus Albumin Globulin Albumin/Globulin Ratio Meds: Medications Acetaminophen (Acetaminophen 325 Mg Tablet) 650 mg PO Q6HP PRN; Protocol PRN Reason: Per Pain Protocol/Fever > 101 Last Admin: 01/31/22 12:15 Dose: 650 mg Documented by: Acetaminophen (Acetaminophen 500 Mg Tablet) 1,000 mg PO BID [facility]; Protocol Last Admin: 02/01/22 09:15 Dose: Not Given Documented by: Albuterol/Ipratropium (Ipratropium/Albuterol 3 Ml Ampul.Neb) 3 ml NEB Q4HRT PRN PRN Reason: Wheezing Calcitriol (Calcitriol 0.25 Mcg Capsule) 0.5 mcg PO DAILY [facility] Calcium Carbonate/Glycine (Calcium Carbonate 1,250 Mg/5 Ml Oral.Susp) 500 mg PO TID [facility] Last Admin: 02/01/22 09:13 Dose: Not Given Documented by: Cetirizine HCl (Cetirizine 10 Mg Tablet) 5 mg PO DAILY [facility] Last Admin: 02/01/22 09:15 Dose: Not Given Documented by: Clopidogrel Bisulfate (Clopidogrel 75 Mg Tablet) 75 mg PO DAILY [facility] Dexamethasone (Dexamethasone 4 Mg Tablet) 6 mg PO DAILY [facility] Last Admin: 01/31/22 14:51 Dose: 6 mg Documented by: Gabapentin (Gabapentin 100 Mg Capsule) 100 mg PO TID [facility] Last Admin: 02/01/22 09:14 Dose: Not Given Documented by: Guaifenesin (Guaifenesin/Dextromethorphan Oral Zehra) 10 ml PO Q4HP PRN PRN Reason: Cough Heparin Sodium (Porcine) (Heparin 5,000 Unit/Ml Vial) 5,000 unit SQ Q12 [facility] Last Admin: 02/01/22 09:13 Dose: Not Given Documented by: REMDESIVIR 100 mg/ Sodium (Chloride) 250 mls @ 500 mls/hr IV Q24H [facility] Stop: 02/07/22 14:59 Last Infusion: 01/31/22 15:44 Dose: Infused Documented by: Loperamide HCl (Loperamide 2 Mg Capsule) 2 mg PO PRN PRN PRN Reason: Diarrhea Last Admin: 01/31/22 00:14 Dose: 2 mg Documented by: Loperamide HCl (Loperamide 2 Mg Capsule) 4 mg PO BID [facility] Last Admin: 02/01/22 09:14 Dose: Not Given Documented by: Melatonin (Melatonin 3 Mg Tablet) 3 mg PO HS PRN PRN Reason: Insomnia Midodrine (Midodrine 5 Mg Tablet) 5 mg PO PRN PRN PRN Reason: Hypotension Midodrine (Midodrine 5 Mg Tablet) 5 mg PO TID [facility] Last Admin: 02/01/22 09:14 Dose: Not Given Documented by: Nicotine (Nicotine 21 Mg Patch) 21 mg TOPICAL DAILY@1000 [facility] Last Admin: 01/31/22 14:52 Dose: 21 mg Documented by: Omeprazole (Omeprazole 20 Mg Capsule) 20 mg PO BID [facility] Last Admin: 02/01/22 09:17 Dose: Not Given Documented by: Ondansetron HCl (Ondansetron 4 Mg/2 Ml Vial) 4 mg IV Q6HP PRN PRN Reason: Nausea And Vomiting Pramipexole Dihydrochloride (Pramipexole 0.25 Mg Tablet) 0.5 mg PO TID [facility] Last Admin: 02/01/22 09:14 Dose: Not Given Documented by: Ropinirole HCl (Ropinirole 0.25 Mg Tablet) 0.5 mg PO TID [facility] Last Admin: 02/01/22 09:14 Dose: Not Given Documented by: Sertraline HCl (Sertraline 50 Mg Tablet) 150 mg PO QDAY [facility] Sevelamer Carbonate (Sevelamer 800 Mg Tablet) 800 mg PO TIDCC [facility] Last Admin: 02/01/22 09:13 Dose: Not Given Documented by: Simvastatin (Simvastatin 40 Mg Tablet) 80 mg PO QHS [facility] Last Admin: 01/31/22 20:29 Dose: 80 mg Documented by: Sodium Chloride (0.9 % Sodium Chloride 10 Ml Syringe) 10 ml IV Q8 [facility] Last Admin: 02/01/22 05:44 Dose: 10 ml Documented by: Tacrolimus (Tacrolimus 1 Mg Capsule) 2 mg PO Q12 [facility] Last Admin: 01/31/22 20:27 Dose: 2 mg Documented by: Trazodone HCl (Trazodone Hcl 50 Mg Tablet) 25 mg PO HSP PRN PRN Reason: Insomnia A/P Narrative A/P Narrative: Assessment and Plans: *ESRD on hemodialysis: -Crop Research Scientist Dr. Rosa consulted for dialysis needs, HD today then Friday (outpatient if discharged before that) *CoVID pneumonia: -Isolation: airborne and contact -Supplemental oxygen therapy, currently at 4L/min, wean as able -Dexamethasone/Remdesivir *Hyperkalemia: RESOLVED *Anemia, macrocytic normochromic: *GERD: *Depression: *ppx: Heparin / PPI Code status: Senior Ruby Developer Spent With Patient Time: Total time spent is greater than 50% in coordination of care (as documented) at patient's floor/unit and/or counseling patient: QUALITY VTE Deep Vein Thrombosis/Pulmonary Embolism Present on Admission: No
[2022-02-01] MEDS ORDERED: METOPROLOL TARTRATE 5 MG/5 ML VIAL IV PRN (14:20)
[2022-02-01] MEDS: TACROLIMUS 1 MG CAPSULE PO SCH ×2 (14:55→21:32)
[2022-02-01] MEDS: SERTRALINE 50 MG TABLET PO SCH (14:57)
[2022-02-01] MEDS: CALCITRIOL 0.25 MCG CAPSULE PO SCH (14:57)
[2022-02-01] MEDS: DEXAMETHASONE 4 MG TABLET PO SCH (15:01)
[2022-02-01] MEDS: NICOTINE 21 MG PATCH TOPICAL SCH (15:04)
[2022-02-01] MEDS: REMDESIVIR 100 MG in 0.9 % SODIUM CHLORIDE 250 ML IV SCH (15:04)
[2022-02-01] MEDS: CLOPIDOGREL 75 MG TABLET PO SCH (15:05)
[2022-02-01] MEDS: SIMVASTATIN 40 MG TABLET PO SCH (20:25)
[2022-02-01] MEDS: traZODone HCL 50 MG TABLET PO PRN (20:26)
[2022-02-02] MEDS: 0.9 % SODIUM CHLORIDE 10 ML SYRINGE IV SCH ×3 (04:38→23:11)
--- NOTE | 2022-02-02 07:43 | Internal Med Progress Note ---
SUBJECTIVE Subjective Patient information: Note initiated : 02/02/22 at 7:38 am Service Date, if different from initiated Date: [] Patient: Mike Moe a 61 y/o M admitted on 01/30/22 for Fluid Overload/COVID +. Chief Complaint: [] Interval history: History of present illness: Mr. Moe is a 61 year old M history of end-stage renal disease on hemodialysis Friday, presenting with need for hemodialysis. His last dialysis session was 2 days ago on Friday, January 28, 2022. He was also being screened for COVID-pneumonia and he was actually screened at positive. Earlier today when he presented to the outpatient dialysis center for hemodialysis sections, he was being denied entry and was instead told to come to the hospital for dialysis sections. He ended up going to [facility] but they did not have dialysis capacity so they request patient to be transferred to our facility for hemodialysis. Of note, patient is currently on up to 4 L/min of supplemental oxygen's. [employer] Guard Dr. Rosa was contacted and he is willing to assist with hemodialysis tomorrow. 01/31: Afebrile overnight. Patient is currently on 5 L/min of supplemental oxygen. Patient is currently receiving hemodialysis. Patient is committing of shortness of breath. He is complaining of productive cough with clear sputum. He is committing of shaking chills. He denies any fever or diaphoresis. He denies any respiratory wheezings. Continue hemodialysis today and tomorrow as per pay station attendant. Continue remdesivir and dexamethasone together with supplemental oxygen for treatment of COVID-pneumonia. 02/01: Afebrile overnight. The patient is currently on 4 L/min of supplemental oxygen's. Patient is currently receiving hemodialysis. Patient is complaining of improving degree of shortness of breath. He is complaining of productive c ough with clear sputum productions. He denies any subjective fever or shaking chills. Poor appetite. Mild general body weakness. After today's hemodialysis sections, the next section will be next Friday. Continue remdesivir and dexamethasone together with supplemental oxygen for treatment of COVID-pneumonia. 02/02 Patient sitting up in bed eating breakfast. No new complaints. On the telemetr y yesterday look like it might be some moments of A. fib, EKG with sinus with PACs. Patient would have a low [id number] score. Follow-up labs in the morning. Patient says he quit smoking today. Wears oxygen at home occasionally 2 L. Has stents in his heart he says. Review of Systems: denies headache/fever/chills/nausea/vomiting/chest or abdominal pain/cough/dyspnea/diarrhea. Otherwise see above. Constitutional Vitals: Vital Signs Temp Pulse Resp BP Pulse Ox 97.3 F 81 20 137/65 93 02/02/22 03:05 02/02/22 03:05 02/02/22 03:05 02/02/22 03:05 02/02/22 03:05 Period Temp Pulse Resp BP Sys/Ludwig Pulse Ox Last 24 Hr 97.2 F-98.8 F 52-108 18-20 100-148/56-85 92-99 Intake and Output 02/01/22 02/02/22 02/02/22 21:59 05:59 13:59 Intake Total 1090 590 Balance 1090 590 Weight 67.903 kg Intake & Output: Intake & Output 02/01/22 02/02/22 02/02/22 21:59 05:59 13:59 Intake Total 1090 590 Balance 1090 590 Weight 67.903 kg Intake: IV 250 Veklury 100 mg In Sodium 250 Chloride 0.9% 250 ml @ 500 mls/ hr IV Q24H [facility] Rx#:[id number] Oral 840 590 Other: Meal 3x pk grahm crackers Percent of Meal Consumed 100% Feeding Ability Independent Stool Size Large Stool Color Brown Stool Consistency Soft # Bowel Movements 1 Exam: General: Alert, Awake, No acute Distress Eyes/N/T: EOMI, Head/Neck: neck supple, CV: regular with occasional irregularity, No murmurs, Pulm: Clear b/l, no wheezing/rhonchi/rales Abd: soft, nontender, +BS x4 Ext: no clubbing/cyanosis/edema, AV fistula left arm. b/l BKA Neuro: Alert, no focal deficits, moves all extremities, Skin: warm/dry OBJ DATA Labs CBC & Chem 7: 02/01/22 05:37 02/01/22 05:37 Labs: Abnormal Lab Results 02/01/22 02/01/22 01/31/22 05:37 05:37 05:55 WBC 1.3 L RBC 2.73 L Hgb 8.7 L Hct 28.5 L MCV 104.4 H MCHC 30.5 L RDW 15.3 H Plt Count 71 L MPV 11.6 H Neut % (Auto) 78.6 H Lymph % (Auto) 14.3 L Lymph # (Auto) 0.18 L [place] # (Auto) 0.09 L Absolute Neutrophils 0.99 L* Sodium 132 L Potassium 5.4 H Chloride 94 L Carbon Dioxide 21 L BUN 32 H 35 H Creatinine 5.8 H* 8.9 H* Glucose 165 H Calcium 8.4 L 8.4 L Phosphorus 8.3 H* Albumin 2.8 L Globulin 3.8 H 3.8 H Albumin/Globulin Ratio 0.7 L 0.9 L 01/31/22 05:55 WBC 3.3 L RBC 2.96 L Hgb 9.4 L Hct 31.5 L MCV 106.4 H MCHC 29.8 L RDW 16.0 H Plt Count 72 L MPV 11.8 H Neut % (Auto) Lymph % (Auto) 14.2 L Lymph # (Auto) 0.47 L [place] # (Auto) Absolute Neutrophils Sodium Potassium Chloride Carbon Dioxide BUN Creatinine Glucose Calcium Phosphorus Albumin Globulin Albumin/Globulin Ratio Meds: Medications Acetaminophen (Acetaminophen 325 Mg Tablet) 650 mg PO Q6HP PRN; Protocol PRN Reason: Per Pain Protocol/Fever > 101 Last Admin: 01/31/22 12:15 Dose: 650 mg Documented by: Acetaminophen (Acetaminophen 500 Mg Tablet) 1,000 mg PO BID [facility]; Protocol Last Admin: 02/01/22 20:23 Dose: 1,000 mg Documented by: Albuterol/Ipratropium (Ipratropium/Albuterol 3 Ml Ampul.Neb) 3 ml NEB Q4HRT PRN PRN Reason: Wheezing Calcitriol (Calcitriol 0.25 Mcg Capsule) 0.5 mcg PO DAILY [facility] Last Admin: 02/01/22 14:57 Dose: 0.5 mcg Documented by: Calcium Carbonate/Glycine (Calcium Carbonate 1,250 Mg/5 Ml Oral.Susp) 500 mg PO TID [facility] Last Admin: 02/01/22 21:28 Dose: 500 mg Documented by: Cetirizine HCl (Cetirizine 10 Mg Tablet) 5 mg PO DAILY [facility] Last Admin: 02/01/22 14:56 Dose: 5 mg Documented by: Clopidogrel Bisulfate (Clopidogrel 75 Mg Tablet) 75 mg PO DAILY [facility] Last Admin: 02/01/22 15:05 Dose: 75 mg Documented by: Dexamethasone (Dexamethasone 4 Mg Tablet) 6 mg PO DAILY [facility] Last Admin: 02/01/22 15:01 Dose: 6 mg Documented by: Gabapentin (Gabapentin 100 Mg Capsule) 100 mg PO TID [facility] Last Admin: 02/01/22 20:24 Dose: 100 mg Documented by: Guaifenesin (Guaifenesin/Dextromethorphan Oral Zehra) 10 ml PO Q4HP PRN PRN Reason: Cough Heparin Sodium (Porcine) (Heparin 5,000 Unit/Ml Vial) 5,000 unit SQ Q12 [facility] Last Admin: 02/01/22 20:21 Dose: 5,000 unit Documented by: REMDESIVIR 100 mg/ Sodium (Chloride) 250 mls @ 500 mls/hr IV Q24H [facility] Stop: 02/07/22 14:59 Last Infusion: 02/01/22 15:54 Dose: Infused Documented by: Loperamide HCl (Loperamide 2 Mg Capsule) 2 mg PO PRN PRN PRN Reason: Diarrhea Last Admin: 01/31/22 00:14 Dose: 2 mg Documented by: Loperamide HCl (Loperamide 2 Mg Capsule) 4 mg PO BID [facility] Last Admin: 02/01/22 20:24 Dose: 4 mg Documented by: Melatonin (Melatonin 3 Mg Tablet) 3 mg PO HS PRN PRN Reason: Insomnia Metoprolol Tartrate (Metoprolol Tartrate 5 Mg/5 Ml Vial) 5 mg IV Q2HP PRN PRN Reason: Tachyarrhythmias HR>110 Midodrine (Midodrine 5 Mg Tablet) 5 mg PO PRN PRN PRN Reason: Hypotension Midodrine (Midodrine 5 Mg Tablet) 5 mg PO TID [facility] Last Admin: 02/01/22 20:26 Dose: 5 mg Documented by: Nicotine (Nicotine 21 Mg Patch) 21 mg TOPICAL DAILY@1000 [facility] Last Admin: 02/01/22 15:04 Dose: 21 mg Documented by: Omeprazole (Omeprazole 20 Mg Capsule) 20 mg PO BID [facility] Last Admin: 02/01/22 20:26 Dose: 20 mg Documented by: Ondansetron HCl (Ondansetron 4 Mg/2 Ml Vial) 4 mg IV Q6HP PRN PRN Reason: Nausea And Vomiting Pramipexole Dihydrochloride (Pramipexole 0.25 Mg Tablet) 0.5 mg PO TID [facility] Last Admin: 02/01/22 20:24 Dose: 0.5 mg Documented by: Ropinirole HCl (Ropinirole 0.25 Mg Tablet) 0.5 mg PO TID [facility] Last Admin: 02/01/22 20:23 Dose: 0.5 mg Documented by: Sertraline HCl (Sertraline 50 Mg Tablet) 150 mg PO QDAY [facility] Last Admin: 02/01/22 14:57 Dose: 150 mg Documented by: Sevelamer Carbonate (Sevelamer 800 Mg Tablet) 800 mg PO TIDCC [facility] Last Admin: 02/01/22 16:50 Dose: 800 mg Documented by: Simvastatin (Simvastatin 40 Mg Tablet) 80 mg PO QHS [facility] Last Admin: 02/01/22 20:25 Dose: 80 mg Documented by: Sodium Chloride (0.9 % Sodium Chloride 10 Ml Syringe) 10 ml IV Q8 [facility] Last Admin: 02/02/22 04:38 Dose: 10 ml Documented by: Tacrolimus (Tacrolimus 1 Mg Capsule) 2 mg PO Q12 [facility] Last Admin: 02/01/22 21:32 Dose: 2 mg Documented by: Trazodone HCl (Trazodone Hcl 50 Mg Tablet) 25 mg PO HSP PRN PRN Reason: Insomnia Last Admin: 02/01/22 20:26 Dose: 25 mg Documented by: A/P Narrative A/P Narrative: Assessment and Plans: *ESRD on hemodialysis: -Armed Guard Dr. Rosa consulted for dialysis needs, HD today then Friday *CoVID pneumonia with acute hypoxic Respiratory failure: -Isolation airborne and contact -Supplemental oxygen therapy, wean as able. On room air today -Dexamethasone/Remdesivir *COPD(occ uses 2L@home): *CAD w/stents: on plavix/statin *h/o Liver Transplant: on Tracrlimus *Hyperkalemia: Resolved *Anemia, macrocytic normochromic, chronic: *GERD: *Depression: on SSRI *Tobacco abuse: Smoking cessation counseling >3 minutes, nicotine patch *ppx: Heparin / PPI Code status: Front Tender Spent With Patient Time: Total time spent is greater than 50% in coordination of care (as documented) at patient's floor/unit and/or counseling patient: Total time spent with greater than 50% in coordination of care (as documented) a t patient's floor/unit and/or counseling patient:: 25 - 35 minutes QUALITY VTE Deep Vein Thrombosis/Pulmonary Embolism Present on Admission: No
[2022-02-02] MEDS: PRAMIPEXOLE 0.25 MG TABLET PO SCH ×3 (09:02→20:42)
[2022-02-02] MEDS: SEVELAMER 800 MG TABLET PO SCH ×3 (09:02→17:54)
[2022-02-02] MEDS: ACETAMINOPHEN 500 MG TABLET PO SCH ×2 (09:02→20:43)
[2022-02-02] MEDS: CALCITRIOL 0.25 MCG CAPSULE PO SCH (09:02)
[2022-02-02] MEDS: DEXAMETHASONE 4 MG TABLET PO SCH (09:03)
[2022-02-02] MEDS: CLOPIDOGREL 75 MG TABLET PO SCH (09:03)
[2022-02-02] MEDS: rOPINIRole 0.25 MG TABLET PO SCH ×3 (09:03→20:45)
[2022-02-02] MEDS: OMEPRAZOLE 20 MG CAPSULE PO SCH ×2 (09:03→20:43)
[2022-02-02] MEDS: GABAPENTIN 100 MG CAPSULE PO SCH ×3 (09:04→20:43)
[2022-02-02] MEDS: CETIRIZINE 10 MG TABLET PO SCH (09:04)
[2022-02-02] MEDS: LOPERAMIDE 2 MG CAPSULE PO SCH ×2 (09:04→20:43)
[2022-02-02] MEDS: SERTRALINE 50 MG TABLET PO SCH (09:04)
[2022-02-02] MEDS: MIDODRINE 5 MG TABLET PO SCH ×3 (09:05→20:43)
[2022-02-02] MEDS: HEPARIN 5,000 UNIT/ML VIAL SQ SCH ×2 (09:12→20:44)
[2022-02-02] MEDS: TACROLIMUS 1 MG CAPSULE PO SCH ×2 (09:50→20:46)
[2022-02-02] MEDS: CALCIUM CARBONATE 1,250 MG/5 ML ORAL.SUSP PO SCH ×3 (09:51→20:42)
[2022-02-02] MEDS: NICOTINE 21 MG PATCH TOPICAL SCH (09:52)
[2022-02-02] MEDS: REMDESIVIR 100 MG in 0.9 % SODIUM CHLORIDE 250 ML IV SCH (09:54)
--- NOTE | 2022-02-02 11:29 | Nephrology Progress Note ---
SUBJECTIVE Subjective Patient information: Note initiated : 02/02/22 at 11:28 am Patient: Mike Moe a 61 y/o M admitted on 01/30/22 for Fluid Overload/COVID +. Chief Complaint: Dyspnra Pertinent ROS: Dyspnea Weakness Constitutional Vitals: Vital Signs Temp Pulse Resp BP Pulse Ox 97.4 F 72 18 146/72 90 02/02/22 08:51 02/02/22 08:51 02/02/22 08:51 02/02/22 08:51 02/02/22 08:51 Period Temp Pulse Resp BP Sys/Ludwig Pulse Ox Last 24 Hr 97.2 F-98.8 F 65-108 18-20 100-146/56-85 90-99 Intake and Output 02/01/22 02/02/22 02/02/22 21:59 05:59 13:59 Intake Total 1090 590 400 Balance 1090 590 400 Weight 149 lb 11.2 oz Intake & Output: Intake & Output 02/01/22 02/02/22 02/02/22 21:59 05:59 13:59 Intake Total 1090 590 400 Balance 1090 590 400 Weight 149 lb 11.2 oz Intake: IV 250 250 Veklury 100 mg In Sodium 250 250 Chloride 0.9% 250 ml @ 500 mls/ hr IV Q24H [facility] Rx#:[id number] Oral 840 590 150 Other: Meal 3x pk grahm crackers Breakfast Percent of Meal Consumed 100% 100% Feeding Ability Independent Independent Nourishment/Supplement name Nepro Stool Size Large Small Stool Color Brown Brown Stool Consistency Soft Soft # Bowel Movements 1 Head Head exam: Present atraumatic and normal inspection Eye Eye exam: Present normal appearance ENT ENT exam: Present mucous membranes moist, normal exam and normal external ear exam Neck Neck exam: Present normal inspection Respiratory Respiratory exam: Present normal respiratory exam Cardiovascular Cardiovascular exam: Present normal rate and rhythm GI/Abdominal GI/Abdominal exam: Present normal bowel sounds Back Exam Back exam: Present normal inspection Neurological Exam Neurological exam: Present alert and oriented X3 Skin Skin exam: Present intact and warm A/P Assessment and plan (1) ESRD on hemodialysis: Assessment and plan: Mike Moe is a 61-year-old male with end stage renal disease on hemodialysis admitted on 01/30/22. He is on hemodialysis Friday at [facility]. His last dialysis was on Friday (01/28/2022). He was tested positive for COVID and[facility].He presented to [facility] ED. He was transferred to our facility for hemodialysis. Nephrology consultation was requested for end stage renal disease. End stage renal disease on hemodialysis. Suspected fluid overload, improved. Chronic hypotension on Midodrine 5 mg PO PRN with hemodialysis. Hyperkalemia, resolved. Metabolic acidosis, resolved. Hyperphosphatemia on Renvela 800 mg PO TID with meals and Calcium Carbonate 500 mg PO TID with meals. Left arm AV fistula. Chronic anemia due to ESRD. Liver transplant at [facility] on Tacrolimus 2 mg twice every 12 hours. Recommendations/Plan: Hemodialysis on Friday, Friday, Friday. Status: Chronic Time Spent With Patient Time: Total time spent is greater than 50% in coordination of care (as documented) at patient's floor/unit and/or counseling patient:
[2022-02-02] MEDS: traZODone HCL 50 MG TABLET PO PRN (20:42)
[2022-02-02] MEDS: SIMVASTATIN 40 MG TABLET PO SCH (20:42)
[2022-02-03] MEDS: 0.9 % SODIUM CHLORIDE 10 ML SYRINGE IV SCH ×3 (05:27→20:50)
[2022-02-03 06:31] LABS: Basophils # (Auto) 0 K/mcL (0.00-0.30); Basophils % (Auto) 0 % (0.0-2.0); Eosinophils # (Auto) 0 K/mcL (0.00-0.70); Eosinophils % (Auto) 0 % (0.0-7.0); Hematocrit 30.7 % (40.1-51.0); Hemoglobin 9.7 g/dL (13.7-17.5); Lymphocytes # (Auto) 0.45 K/mcL (1.50-4.80); Lymphocytes % (Auto) 14.2 % (15.5-49.0); Mean Cell Volume 100.7 fL (80.0-100.0); Mean Corpuscular HGB Conc 31.6 g/dL (31.0-36.0); Mean Platelet Volume 11.7 fL (7.4-10.4); Monocytes # (Auto) 0.22 K/mcL (0.10-0.90); Monocytes % (Auto) 6.9 % (1.0-12.0); Neutrophils % (Auto) 78.9 % (38.0-78.0); Platelet Count 106 K/mcL (140-440); RBC 3.05 M/mcL (4.63-6.08); Red Cell Distribution Width 14.9 % (11.5-14.5); WBC 3.2 K/mcL (4.5-11.0)
[2022-02-03 06:59] LABS: ALT/SGPT 14 U/L (<40); AST/SGOT 19 U/L (<40); Albumin 3.4 gm/dL (3.2-5.2); Albumin/Globulin Ratio 0.9 (1.0-2.3); Alkaline Phosphatase 105 U/L (39-117); Bilirubin,Direct < 0.2 mg/dL (0-0.3); Bilirubin,Total 0.4 mg/dL (0.1-1.0); Blood Urea Nitrogen 40 mg/dL (6-20); Calcium 9.4 mg/dL (8.6-10.4); Carbon Dioxide 26 mmol/L (22-30); Chloride 91 mmol/L (96-108); Globulin 3.7 gm/dL (2.2-3.7); Glomerular Filtration Rate 12; Glucose 145 mg/dL (70-105); Lactate Dehydrogenase 178 U/L (135-225); Phosphorous 3.4 mg/dL (2.5-4.5); Triglycerides 221 mg/dL (<150); Uric Acid 3.2 mg/dL (2.5-8.0)
--- NOTE | 2022-02-03 07:26 | Internal Med Progress Note ---
SUBJECTIVE Subjective Patient information: Note initiated : 02/03/22 at 7:24 am Service Date, if different from initiated Date: [] Patient: Mike Moe a 61 y/o M admitted on 01/30/22 for Fluid Overload/COVID +. Chief Complaint: [] Interval history: History of present illness: Mr. Moe is a 61 year old M history of end-stage renal disease on hemodialysis Friday, presenting with need for hemodialysis. His last dialysis session was 2 days ago on Friday, January 28, 2022. He was also being screened for COVID-pneumonia and he was actually screened at positive. Earlier today when he presented to the outpatient dialysis center for hemodialysis sections, he was being denied entry and was instead told to come to the hospital for dialysis sections. He ended up going to [facility] but they did not have dialysis capacity so they request patient to be transferred to our facility for hemodialysis. Of note, patient is currently on up to 4 L/min of supplemental oxygen's. Foreman Or Supervisor [employer] Dr. Rosa was contacted and he is willing to assist with hemodialysis tomorrow. 01/31: Afebrile overnight. Patient is currently on 5 L/min of supplemental oxygen. Patient is currently receiving hemodialysis. Patient is committing of shortness of breath. He is complaining of productive cough with clear sputum. He is committing of shaking chills. He denies any fever or diaphoresis. He denies any respiratory wheezings. Continue hemodialysis today and tomorrow as per fuel handler. Continue remdesivir and dexamethasone together with supplemental oxygen for treatment of COVID-pneumonia. 02/01: Afebrile overnight. The patient is currently on 4 L/min of supplemental oxygen's. Patient is currently receiving hemodialysis. Patient is complaining of improving degree of shortness of breath. He is complaining of productive c ough with clear sputum productions. He denies any subjective fever or shaking chills. Poor appetite. Mild general body weakness. After today's hemodialysis sections, the next section will be next Friday. Continue remdesivir and dexamethasone together with supplemental oxygen for treatment of COVID-pneumonia. 02/02 Patient sitting up in bed eating breakfast. No new complaints. On the telemetr y yesterday look like it might be some moments of A. fib, EKG with sinus with PACs. Patient would have a low [id number] score. Follow-up labs in the morning. Patient says he quit smoking today. Wears oxygen at home occasionally 2 L. Has stents in his heart he says. 02/03 No overnight event or new complaints. Dialysis per nephrology. Currently on room air. Leukopenia mildly improved. Review of Systems: denies headache/fever/chills/nausea/vomiting/chest or abdominal pain/cough/dyspnea/diarrhea. Otherwise see above. Constitutional Vitals: Vital Signs Temp Pulse Resp BP Pulse Ox 97.4 F 71 16 149/68 91 02/03/22 03:40 02/03/22 03:40 02/03/22 03:40 02/03/22 03:40 02/03/22 03:40 Period Temp Pulse Resp BP Sys/Ludwig Pulse Ox Last 24 Hr 97.1 F-97.9 F 70-80 16-20 130-150/47-72 90-94 Intake and Output 02/02/22 02/03/22 02/03/22 21:59 05:59 13:59 Intake Total 560 Balance 560 Weight 69.4 kg Intake & Output: Intake & Output 02/02/22 02/03/22 02/03/22 21:59 05:59 13:59 Intake Total 560 Balance 560 Weight 69.4 kg Intake: Oral 560 Other: Meal Lunch 3x pk grahm crackers Percent of Meal Consumed 100% 100% Feeding Ability Independent Independent Stool Size Large Stool Color Brown Blood Tinged Stool Consistency Soft # Bowel Movements 1 Exam: General: Alert, Awake, No acute Distress Eyes/N/T: EOMI, Head/Neck: neck supple, CV: regular with occasional irregularity, No murmurs, Pulm: Clear b/l, no wheezing/rhonchi/rales Abd: soft, nontender, +BS x4 Ext: no clubbing/cyanosis/edema, AV fistula left arm. b/l BKA Neuro: Alert, no focal deficits, moves all extremities, Skin: warm/dry OBJ DATA Labs CBC & Chem 7: 02/03/22 05:44 02/03/22 05:43 Labs: Abnormal Lab Results 02/03/22 02/03/22 02/01/22 05:44 05:43 05:37 WBC 3.2 L RBC 3.05 L Hgb 9.7 L Hct 30.7 L MCV 100.7 H MCHC RDW 14.9 H Plt Count 106 L MPV 11.7 H Neut % (Auto) 78.9 H Lymph % (Auto) 14.2 L Lymph # (Auto) 0.45 L [place] # (Auto) Absolute Neutrophils Sodium 129 L 132 L Potassium Chloride 91 L 94 L Carbon Dioxide BUN 40 H 32 H Creatinine 4.9 H 5.8 H* Glucose 145 H 165 H Calcium 8.4 L Phosphorus Albumin 2.8 L Globulin 3.8 H Albumin/Globulin Ratio 0.9 L 0.7 L Triglycerides 221 H 02/01/22 01/31/22 01/31/22 05:37 05:55 05:55 WBC 1.3 L 3.3 L RBC 2.73 L 2.96 L Hgb 8.7 L 9.4 L Hct 28.5 L 31.5 L MCV 104.4 H 106.4 H MCHC 30.5 L 29.8 L RDW 15.3 H 16.0 H Plt Count 71 L 72 L MPV 11.6 H 11.8 H Neut % (Auto) 78.6 H Lymph % (Auto) 14.3 L 14.2 L Lymph # (Auto) 0.18 L 0.47 L [place] # (Auto) 0.09 L Absolute Neutrophils 0.99 L* Sodium Potassium 5.4 H Chloride Carbon Dioxide 21 L BUN 35 H Creatinine 8.9 H* Glucose Calcium 8.4 L Phosphorus 8.3 H* Albumin Globulin 3.8 H Albumin/Globulin Ratio 0.9 L Triglycerides Meds: Medications Acetaminophen (Acetaminophen 325 Mg Tablet) 650 mg PO Q6HP PRN; Protocol PRN Reason: Per Pain Protocol/Fever > 101 Last Admin: 01/31/22 12:15 Dose: 650 mg Documented by: Acetaminophen (Acetaminophen 500 Mg Tablet) 1,000 mg PO BID [facility]; Protocol Last Admin: 02/02/22 20:43 Dose: 1,000 mg Documented by: Albuterol/Ipratropium (Ipratropium/Albuterol 3 Ml Ampul.Neb) 3 ml NEB Q4HRT PRN PRN Reason: Wheezing Calcitriol (Calcitriol 0.25 Mcg Capsule) 0.5 mcg PO DAILY [facility] Last Admin: 02/02/22 09:02 Dose: 0.5 mcg Documented by: Calcium Carbonate/Glycine (Calcium Carbonate 1,250 Mg/5 Ml Oral.Susp) 500 mg PO TID [facility] Last Admin: 02/02/22 20:42 Dose: 500 mg Documented by: Cetirizine HCl (Cetirizine 10 Mg Tablet) 5 mg PO DAILY [facility] Last Admin: 02/02/22 09:04 Dose: 5 mg Documented by: Clopidogrel Bisulfate (Clopidogrel 75 Mg Tablet) 75 mg PO DAILY [facility] Last Admin: 02/02/22 09:03 Dose: 75 mg Documented by: Dexamethasone (Dexamethasone 4 Mg Tablet) 6 mg PO DAILY [facility] Last Admin: 02/02/22 09:03 Dose: 6 mg Documented by: Gabapentin (Gabapentin 100 Mg Capsule) 100 mg PO TID [facility] Last Admin: 02/02/22 20:43 Dose: 100 mg Documented by: Guaifenesin (Guaifenesin/Dextromethorphan Oral Zehra) 10 ml PO Q4HP PRN PRN Reason: Cough Heparin Sodium (Porcine) (Heparin 5,000 Unit/Ml Vial) 5,000 unit SQ Q12 [facility] Last Admin: 02/02/22 20:44 Dose: 5,000 unit Documented by: REMDESIVIR 100 mg/ Sodium (Chloride) 250 mls @ 500 mls/hr IV Q24H [facility] Stop: 02/07/22 14:59 Last Infusion: 02/02/22 10:38 Dose: Infused Documented by: Loperamide HCl (Loperamide 2 Mg Capsule) 2 mg PO PRN PRN PRN Reason: Diarrhea Last Admin: 01/31/22 00:14 Dose: 2 mg Documented by: Loperamide HCl (Loperamide 2 Mg Capsule) 4 mg PO BID [facility] Last Admin: 02/02/22 20:43 Dose: 4 mg Documented by: Melatonin (Melatonin 3 Mg Tablet) 3 mg PO HS PRN PRN Reason: Insomnia Metoprolol Tartrate (Metoprolol Tartrate 5 Mg/5 Ml Vial) 5 mg IV Q2HP PRN PRN Reason: Tachyarrhythmias HR>110 Midodrine (Midodrine 5 Mg Tablet) 5 mg PO PRN PRN PRN Reason: Hypotension Midodrine (Midodrine 5 Mg Tablet) 5 mg PO TID [facility] Last Admin: 02/02/22 20:43 Dose: 5 mg Documented by: Nicotine (Nicotine 21 Mg Patch) 21 mg TOPICAL DAILY@1000 [facility] Last Admin: 02/02/22 09:52 Dose: 21 mg Documented by: Omeprazole (Omeprazole 20 Mg Capsule) 20 mg PO BID [facility] Last Admin: 02/02/22 20:43 Dose: 20 mg Documented by: Ondansetron HCl (Ondansetron 4 Mg/2 Ml Vial) 4 mg IV Q6HP PRN PRN Reason: Nausea And Vomiting Pramipexole Dihydrochloride (Pramipexole 0.25 Mg Tablet) 0.5 mg PO TID [facility] Last Admin: 02/02/22 20:42 Dose: 0.5 mg Documented by: Ropinirole HCl (Ropinirole 0.25 Mg Tablet) 0.5 mg PO TID [facility] Last Admin: 02/02/22 20:45 Dose: 0.5 mg Documented by: Sertraline HCl (Sertraline 50 Mg Tablet) 150 mg PO QDAY [facility] Last Admin: 02/02/22 09:04 Dose: 150 mg Documented by: Sevelamer Carbonate (Sevelamer 800 Mg Tablet) 800 mg PO TIDCC [facility] Last Admin: 02/02/22 17:54 Dose: 800 mg Documented by: Simvastatin (Simvastatin 40 Mg Tablet) 80 mg PO QHS [facility] Last Admin: 02/02/22 20:42 Dose: 80 mg Documented by: Sodium Chloride (0.9 % Sodium Chloride 10 Ml Syringe) 10 ml IV Q8 [facility] Last Admin: 02/03/22 05:27 Dose: 10 ml Documented by: Tacrolimus (Tacrolimus 1 Mg Capsule) 2 mg PO Q12 [facility] Last Admin: 02/02/22 20:46 Dose: 2 mg Documented by: Trazodone HCl (Trazodone Hcl 50 Mg Tablet) 25 mg PO HSP PRN PRN Reason: Insomnia Last Admin: 02/02/22 20:42 Dose: 25 mg Documented by: A/P Narrative A/P Narrative: Assessment and Plans: *ESRD on hemodialysis: -Foreman Or Supervisor And Operator Dr. Rosa consulted for dialysis needs, HD today then Friday *CoVID pneumonia with acute hypoxic Respiratory failure: -Isolation airborne and contact -Supplemental oxygen therapy, wean as able. now on Room Air -Dexamethasone/Remdesivir *COPD(occ uses 2L@home): *CAD w/stents: on plavix/statin *h/o Liver Transplant: on Tracrolimus *Leukopenia/thrombocytopenia: *Hyperkalemia: Resolved *Anemia, macrocytic normochromic, chronic: *GERD: *Depression: on SSRI *Tobacco abuse: Smoking cessation counseling, nicotine patch *ppx: Heparin / PPI Code status: Flap Curer Spent With Patient Time: Total time spent is greater than 50% in coordination of care (as documented) at patient's floor/unit and/or counseling patient: Total time spent with greater than 50% in coordination of care (as documented) at patient's floor/unit and/or counseling patient:: 25 - 35 minutes QUALITY VTE Deep Vein Thrombosis/Pulmonary Embolism Present on Admission: No
--- NOTE | 2022-02-03 08:10 | Nephrology Progress Note ---
SUBJECTIVE Subjective Patient information: Note initiated : 02/03/22 at 8:09 am Patient: Mike Moe a 61 y/o M admitted on 01/30/22 for Fluid Overload/COVID +. Chief Complaint: Weakness Pertinent ROS: Weakness Constitutional Vitals: Vital Signs Temp Pulse Resp BP Pulse Ox 97.4 F 71 16 149/68 91 02/03/22 03:40 02/03/22 03:40 02/03/22 03:40 02/03/22 03:40 02/03/22 03:40 Period Temp Pulse Resp BP Sys/Ludwig Pulse Ox Last 24 Hr 97.1 F-97.9 F 70-80 16-20 130-150/47-72 90-94 Intake and Output 02/02/22 02/03/22 02/03/22 21:59 05:59 13:59 Intake Total 560 Balance 560 Weight 153 lb Intake & Output: Intake & Output 02/02/22 02/03/22 02/03/22 21:59 05:59 13:59 Intake Total 560 Balance 560 Weight 153 lb Intake: Oral 560 Other: Meal Lunch 3x pk grahm crackers Percent of Meal Consumed 100% 100% Feeding Ability Independent Independent Stool Size Large Stool Color Brown Blood Tinged Stool Consistency Soft # Bowel Movements 1 General appearance: cooperative and no acute distress Head Head exam: Present normal inspection Eye Eye exam: Present normal appearance ENT ENT exam: Present mucous membranes moist Respiratory Respiratory exam: Absent respiratory distress Cardiovascular Cardiovascular exam: Present normal rate and rhythm GI/Abdominal GI/Abdominal exam: Present soft; Absent tenderness Extremities Exam Extremities exam: Absent joint swelling or pedal edema Neurological Exam Neurological exam: Present alert and oriented X3 Psychiatric Psychiatric exam: Present normal affect and normal mood Skin Skin exam: Present warm; Absent rash A/P Assessment and plan (1) ESRD on hemodialysis: Assessment and plan: Mike Moe is a 61-year-old male with end stage renal disease on hemodialysis admitted on 01/30/22. He is on hemodialysis Friday at [place]. His last dialysis was on Friday (01/28/2022). He was tested positive for COVID and[facility].He presented to [place] ED. He was transferred to our facility for hemodialysis. Nephrology consultation was requested for end stage renal disease. End stage renal disease on hemodialysis. Chronic hypotension on Midodrine 5 mg PO PRN with hemodialysis. Hyponatremia associated with ESRD and fluid overload. Hyperphosphatemia on Renvela 800 mg PO TID with meals and Calcium Carbonate 500 mg PO TID with meals. Left arm AV fistula. Chronic anemia due to ESRD. Liver transplant at [facility] on Tacrolimus 2 mg twice every 12 hours. Recommendations/Plan: Hemodialysis on Friday, Friday, Friday. Status: Chronic Time Spent With Patient Time: Total time spent is greater than 50% in coordination of care (as documented) at patient's floor/unit and/or counseling patient:
[2022-02-03] MEDS: HEPARIN 5,000 UNIT/ML VIAL SQ SCH ×2 (08:19→20:41)
[2022-02-03] MEDS: ACETAMINOPHEN 500 MG TABLET PO SCH ×2 (08:21→20:46)
[2022-02-03] MEDS: PRAMIPEXOLE 0.25 MG TABLET PO SCH ×3 (08:22→20:45)
[2022-02-03] MEDS: SEVELAMER 800 MG TABLET PO SCH ×3 (08:22→17:30)
[2022-02-03] MEDS: CETIRIZINE 10 MG TABLET PO SCH (08:22)
[2022-02-03] MEDS: DEXAMETHASONE 4 MG TABLET PO SCH (08:23)
[2022-02-03] MEDS: CALCITRIOL 0.25 MCG CAPSULE PO SCH (08:23)
[2022-02-03] MEDS: LOPERAMIDE 2 MG CAPSULE PO SCH ×2 (08:24→20:40)
[2022-02-03] MEDS: rOPINIRole 0.25 MG TABLET PO SCH ×3 (08:25→20:45)
[2022-02-03] MEDS: OMEPRAZOLE 20 MG CAPSULE PO SCH ×2 (08:25→20:45)
[2022-02-03] MEDS: CLOPIDOGREL 75 MG TABLET PO SCH (08:26)
[2022-02-03] MEDS: SERTRALINE 50 MG TABLET PO SCH (08:26)
[2022-02-03] MEDS: GABAPENTIN 100 MG CAPSULE PO SCH ×3 (08:26→20:46)
[2022-02-03] MEDS: MIDODRINE 5 MG TABLET PO SCH ×3 (08:26→20:45)
[2022-02-03] MEDS: CALCIUM CARBONATE 1,250 MG/5 ML ORAL.SUSP PO SCH ×3 (08:37→20:56)
[2022-02-03] MEDS: TACROLIMUS 1 MG CAPSULE PO SCH ×2 (08:38→20:57)
[2022-02-03] MEDS: NICOTINE 21 MG PATCH TOPICAL SCH (10:38)
[2022-02-03] MEDS: REMDESIVIR 100 MG in 0.9 % SODIUM CHLORIDE 250 ML IV SCH (10:38)
[2022-02-03] MEDS: SIMVASTATIN 40 MG TABLET PO SCH (20:46)
[2022-02-04] MEDS: 0.9 % SODIUM CHLORIDE 10 ML SYRINGE IV SCH ×3 (04:26→20:43)
--- NOTE | 2022-02-04 05:56 | Nephrology Progress Note ---
SUBJECTIVE Subjective Patient information: Note initiated : 02/04/22 at 5:55 am Patient: Mike Moe 61 y/o M admitted on 01/30/22 for Fluid Overload/COVID +. Chief Complaint: Weakness Pertinent ROS: Weakness Constitutional Vitals: Vital Signs Temp Pulse Resp BP Pulse Ox 96.8 F L 64 16 157/66 94 02/04/22 04:00 02/04/22 04:00 02/04/22 04:00 02/04/22 04:00 02/04/22 05:52 Period Temp Pulse Resp BP Sys/Ludwig Pulse Ox Last 24 Hr 96.6 F-97.5 F 64-81 16-20 146-168/66-94 91-95 Intake and Output 02/03/22 02/03/22 02/04/22 13:59 21:59 05:59 Intake Total 487 677 Output Total 0 Balance 487 677 0 Weight 160 lb 4.8 oz Patient Weight 02/04/22 05:59 Weight 160 lb 4.8 oz Intake & Output: Intake & Output 02/03/22 02/03/22 02/04/22 13:59 21:59 05:59 Intake Total 487 677 Output Total 0 Balance 487 677 0 Weight 160 lb 4.8 oz Intake: Nourishment/Supplement quantity 237 237 (ml) IV 250 Veklury 100 mg In Sodium 250 Chloride 0.9% 250 ml @ 500 mls/ hr IV Q24H [facility] Rx#:[id number] Oral 440 Output: # of times incontinent of urine 0 Other: Meal Breakfast Dinner Percent of Meal Consumed 75% 100% Feeding Ability Independent Independent Nourishment/Supplement name Nepro Nepro Stool Size Small Moderate Stool Color Brown Brown Stool Consistency Formed Formed # Voids 4 # Bowel Movements 1 2 General appearance: cooperative and no acute distress Head Head exam: Present normal inspection Eye Eye exam: Present normal appearance ENT ENT exam: Present mucous membranes moist Respiratory Respiratory exam: Absent respiratory distress Cardiovascular Cardiovascular exam: Present normal rate and rhythm GI/Abdominal GI/Abdominal exam: Present soft; Absent tenderness Extremities Exam Extremities exam: Absent joint swelling or pedal edema Neurological Exam Neurological exam: Present alert and oriented X3 Psychiatric Psychiatric exam: Present normal affect and normal mood Skin Skin exam: Present warm; Absent rash A/P Assessment and plan (1) ESRD on hemodialysis: Assessment and plan: Mike Moe is a 61-year-old male with end stage renal disease on hemodialysis admitted on 01/30/22. He is on hemodialysis Friday at [facility]. His last dialysis was on Friday (01/28/2022). He was tested positive for COVID anddenied [facility].He presented to [facility] ED. He was transferred to our facility for hemodialysis. Nephrology consultation was requested for end stage renal disease. End stage renal disease on hemodialysis. Chronic hypotension on Midodrine 5 mg PO PRN with hemodialysis. Hyponatremia associated with ESRD and fluid overload. Hyperphosphatemia on Renvela 800 mg PO TID with meals and Calcium Carbonate 500 mg PO TID with meals. Left arm AV fistula. Chronic anemia due to ESRD. Liver transplant at [facility] on Tacrolimus 2 mg twice every 12 hours. Recommendations/Plan: Hemodialysis on Friday, Friday, Friday. The patient seen and evaluated during hemodialysis today. Status: Chronic Time Spent With Patient Time: Total time spent is greater than 50% in coordination of care (as documented) at patient's floor/unit and/or counseling patient:
[2022-02-04 06:40] LABS: ALT/SGPT 22 U/L (<40); AST/SGOT 38 U/L (<40); Albumin 3.1 gm/dL (3.2-5.2); Albumin/Globulin Ratio 0.8 (1.0-2.3); Alkaline Phosphatase 112 U/L (39-117); Bilirubin,Direct 0.2 mg/dL (<0.3); Bilirubin,Total 0.4 mg/dL (0.1-1.0); Blood Urea Nitrogen 52 mg/dL (6-20); Calcium 9.4 mg/dL (8.6-10.4); Carbon Dioxide 26 mmol/L (22-30); Chloride 91 mmol/L (96-108); Globulin 3.9 gm/dL (2.2-3.7); Glomerular Filtration Rate 9; Glucose 146 mg/dL (70-105); Lactate Dehydrogenase 167 U/L (135-225); Phosphorous 3.4 mg/dL (2.5-4.5); Triglycerides 190 mg/dL (<150)
--- NOTE | 2022-02-04 07:43 | Internal Med Progress Note ---
SUBJECTIVE Subjective Patient information: Note initiated : 02/04/22 at 7:42 am Service Date, if different from initiated Date: [] Patient: Mike Moe a 61 y/o M admitted on 01/30/22 for Fluid Overload/COVID +. Chief Complaint: [] Interval history: History of present illness: Mr. Moe is a 61 year old M history of end-stage renal disease on hemodialysis Friday, presenting with need for hemodialysis. His last dialysis session was 2 days ago on Friday, January 28, 2022. He was also being screened for COVID-pneumonia and he was actually screened at positive. Earlier today when he presented to the outpatient dialysis center for hemodialysis sections, he was being denied entry and was instead told to come to the hospital for dialysis sections. He ended up going to [facility] but they did not have dialysis capacity so they request patient to be transferred to our facility for hemodialysis. Of note, patient is currently on up to 4 L/min of supplemental oxygen's. Control Chemist Dr. Rosa was contacted and he is willing to assist with hemodialysis tomorrow. 01/31: Afebrile overnight. Patient is currently on 5 L/min of supplemental oxygen. Patient is currently receiving hemodialysis. Patient is committing of shortness of breath. He is complaining of productive cough with clear sputum. He is committing of shaking chills. He denies any fever or diaphoresis. He denies any respiratory wheezings. 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 Continue remdesivir and dexamethasone together with supplemental oxygen for treatment of COVID-pneumonia. 02/01: Afebrile overnight. The patient is currently on 4 L/min of supplemental oxygen's. Patient is currently receiving hemodialysis. Patient is complaining of improving degree of shortness of breath. He is complaining of productive c ough with clear sputum productions. He denies any subjective fever or shaking chills. Poor appetite. Mild general body weakness. After today's hemodialysis sections, the next section will be next Friday. Continue remdesivir and dexamethasone together with supplemental oxygen for treatment of COVID-pneumonia. 02/02 Patient sitting up in bed eating breakfast. No new complaints. On the telemetr y yesterday look like it might be some moments of A. fib, EKG with sinus with PACs. Patient would have a low [id number] score. Follow-up labs in the morning. Patient says he quit smoking today. Wears oxygen at home occasionally 2 L. Has stents in his heart he says. 02/03 No overnight event or new complaints. Dialysis per nephrology. Currently on room air. Leukopenia mildly improved. 02/04 Patient being set up for dialysis currently patient has no new pains or complaints. Remains on room air. Review of Systems: denies headache/fever/chills/nausea/vomiting/chest or abdominal pain/cough/ dyspnea/diarrhea. Otherwise see above. Constitutional Vitals: Vital Signs Temp Pulse Resp BP Pulse Ox 96.8 F L 64 16 157/66 94 02/04/22 04:00 02/04/22 04:00 02/04/22 04:00 02/04/22 04:00 02/04/22 05:52 Period Temp Pulse Resp BP Sys/Ludwig Pulse Ox Last 24 Hr 96.6 F-97.5 F 64-81 16-20 146-168/66-94 91-95 Intake and Output 02/03/22 02/04/22 02/04/22 21:59 05:59 13:59 Intake Total 677 Output Total 0 Balance 677 0 Weight 72.711 kg Intake & Output: Intake & Output 02/03/22 02/04/22 02/04/22 21:59 05:59 13:59 Intake Total 677 Output Total 0 Balance 677 0 Weight 72.711 kg Intake: Nourishment/Supplement quantity 237 (ml) Oral 440 Output: # of times incontinent of urine 0 Other: Meal Dinner Percent of Meal Consumed 100% Feeding Ability Independent Nourishment/Supplement name Nepro Stool Size Moderate Stool Color Brown Stool Consistency Formed # Voids 4 # Bowel Movements 2 Exam: General: Alert, Awake, No acute Distress Eyes/N/T: EOMI, Head/Neck: neck supple, CV: regular with occasional irregularity, No murmurs, Pulm: Clear b/l, no wheezing/rhonchi/rales Abd: soft, nontender, +BS x4 Ext: no clubbing/cyanosis/edema, AV fistula left arm. b/l BKA Neuro: Alert, no focal deficits, moves all extremities, Skin: warm/dry OBJ DATA Labs CBC & Chem 7: 06/19/22 05:44 02/04/22 05:29 Labs: Abnormal Lab Results 02/04/22 02/03/22 02/03/22 05:29 05:44 05:43 WBC 3.2 L RBC 3.05 L Hgb 9.7 L Hct 30.7 L MCV 100.7 H RDW 14.9 H Plt Count 106 L MPV 11.7 H Neut % (Auto) 78.9 H Lymph % (Auto) 14.2 L Lymph # (Auto) 0.45 L Sodium 131 L 129 L Chloride 91 L 91 L BUN 52 H 40 H Creatinine 6.0 H* 4.9 H Glucose 146 H 145 H Calcium Albumin 3.1 L Globulin 3.9 H Albumin/Globulin Ratio 0.8 L 0.9 L Triglycerides 190 H 221 H 02/01/22 05:37 WBC RBC Hgb Hct MCV RDW Plt Count MPV Neut % (Auto) Lymph % (Auto) Lymph # (Auto) Sodium 132 L Chloride 94 L BUN 32 H Creatinine 5.8 H* Glucose 165 H Calcium 8.4 L Albumin 2.8 L Globulin 3.8 H Albumin/Globulin Ratio 0.7 L Triglycerides Meds: Medications Acetaminophen (Acetaminophen 325 Mg Tablet) 650 mg PO Q6HP PRN; Protocol PRN Reason: Per Pain Protocol/Fever > 101 Last Admin: 01/31/22 12:15 Dose: 650 mg Documented by: Acetaminophen (Acetaminophen 500 Mg Tablet) 1,000 mg PO BID ERINN; Protocol Last Admin: 02/03/22 20:46 Dose: 1,000 mg Documented by: Albuterol/Ipratropium (Ipratropium/Albuterol 3 Ml Ampul.Neb) 3 ml NEB Q4HRT PRN PRN Reason: Wheezing Calcitriol (Calcitriol 0.25 Mcg Capsule) 0.5 mcg PO DAILY [facility] Last Admin: 02/03/22 08:23 Dose: 0.5 mcg Documented by: Calcium Carbonate/Glycine (Calcium Carbonate 1,250 Mg/5 Ml Oral.Susp) 500 mg PO TID [facility] Last Admin: 02/03/22 20:56 Dose: 500 mg Documented by: Cetirizine HCl (Cetirizine 10 Mg Tablet) 5 mg PO DAILY [facility] Last Admin: 02/03/22 08:22 Dose: 5 mg Documented by: Clopidogrel Bisulfate (Clopidogrel 75 Mg Tablet) 75 mg PO DAILY [facility] Last Admin: 02/03/22 08:26 Dose: 75 mg Documented by: Dexamethasone (Dexamethasone 4 Mg Tablet) 6 mg PO DAILY [facility] Last Admin: 02/03/22 08:23 Dose: 6 mg Documented by: Gabapentin (Gabapentin 100 Mg Capsule) 100 mg PO TID [facility] Last Admin: 02/03/22 20:46 Dose: 100 mg Documented by: Guaifenesin (Guaifenesin/Dextromethorphan Oral Ezhra) 10 ml PO Q4HP PRN PRN Reason: Cough Heparin Sodium (Porcine) (Heparin 5,000 Unit/Ml Vial) 5,000 unit SQ Q12 [facility] Last Admin: 02/03/22 20:41 Dose: 5,000 unit Documented by: Loperamide HCl (Loperamide 2 Mg Capsule) 2 mg PO PRN PRN PRN Reason: Diarrhea Last Admin: 01/31/22 00:14 Dose: 2 mg Documented by: Loperamide HCl (Loperamide 2 Mg Capsule) 4 mg PO BID [facility] Last Admin: 02/03/22 20:40 Dose: Not Given Documented by: Melatonin (Melatonin 3 Mg Tablet) 3 mg PO HS PRN PRN Reason: Insomnia Metoprolol Tartrate (Metoprolol Tartrate 5 Mg/5 Ml Vial) 5 mg IV Q2HP PRN PRN Reason: Tachyarrhythmias HR>110 Midodrine (Midodrine 5 Mg Tablet) 5 mg PO PRN PRN PRN Reason: Hypotension Midodrine (Midodrine 5 Mg Tablet) 5 mg PO TID [facility] Last Admin: 02/03/22 20:45 Dose: 5 mg Documented by: Nicotine (Nicotine 21 Mg Patch) 21 mg TOPICAL DAILY@1000 [facility] Last Admin: 02/03/22 10:38 Dose: 21 mg Documented by: Omeprazole (Omeprazole 20 Mg Capsule) 20 mg PO BID [facility] Last Admin: 02/03/22 20:45 Dose: 20 mg Documented by: Ondansetron HCl (Ondansetron 4 Mg/2 Ml Vial) 4 mg IV Q6HP PRN PRN Reason: Nausea And Vomiting Pramipexole Dihydrochloride (Pramipexole 0.25 Mg Tablet) 0.5 mg PO TID [facility] Last Admin: 02/03/22 20:45 Dose: 0.5 mg Documented by: Ropinirole HCl (Ropinirole 0.25 Mg Tablet) 0.5 mg PO TID [facility] Last Admin: 02/03/22 20:45 Dose: 0.5 mg Documented by: Sertraline HCl (Sertraline 50 Mg Tablet) 150 mg PO QDAY [facility] Last Admin: 02/03/22 08:26 Dose: 150 mg Documented by: Sevelamer Carbonate (Sevelamer 800 Mg Tablet) 800 mg PO TIDCC [facility] Last Admin: 02/03/22 17:30 Dose: 800 mg Documented by: Simvastatin (Simvastatin 40 Mg Tablet) 80 mg PO QHS [facility] Last Admin: 02/03/22 20:46 Dose: 80 mg Documented by: Sodium Chloride (0.9 % Sodium Chloride 10 Ml Syringe) 10 ml IV Q8 [facility] Last Admin: 02/04/22 04:26 Dose: 10 ml Documented by: Tacrolimus (Tacrolimus 1 Mg Capsule) 2 mg PO Q12 [facility] Last Admin: 02/03/22 20:57 Dose: 2 mg Documented by: Trazodone HCl (Trazodone Hcl 50 Mg Tablet) 25 mg PO HSP PRN PRN Reason: Insomnia Last Admin: 02/02/22 20:42 Dose: 25 mg Documented by: A/P Narrative A/P Narrative: Assessment and Plans: *ESRD on hemodialysis: -Control Chemist Dr. Rosa consulted for dialysis needs, HD today then Friday *CoVID pneumonia with acute hypoxic Respiratory failure: -Isolation airborne and contact -Supplemental oxygen therapy, wean as able. 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
[2022-02-04] MEDS: LOPERAMIDE 2 MG CAPSULE PO SCH ×2 (08:57→20:42)
[2022-02-04] MEDS: PRAMIPEXOLE 0.25 MG TABLET PO SCH ×3 (08:59→20:41)
[2022-02-04] MEDS: CALCITRIOL 0.25 MCG CAPSULE PO SCH (09:00)
[2022-02-04] MEDS: ACETAMINOPHEN 500 MG TABLET PO SCH ×2 (09:01→20:41)
[2022-02-04] MEDS: SERTRALINE 50 MG TABLET PO SCH (09:02)
[2022-02-04] MEDS: CETIRIZINE 10 MG TABLET PO SCH (09:03)
[2022-02-04] MEDS: rOPINIRole 0.25 MG TABLET PO SCH ×3 (09:04→20:40)
[2022-02-04] MEDS: CLOPIDOGREL 75 MG TABLET PO SCH (09:04)
[2022-02-04] MEDS: DEXAMETHASONE 4 MG TABLET PO SCH (09:06)
[2022-02-04] MEDS: SEVELAMER 800 MG TABLET PO SCH ×3 (09:07→17:18)
[2022-02-04] MEDS: OMEPRAZOLE 20 MG CAPSULE PO SCH ×2 (09:07→20:41)
[2022-02-04] MEDS: GABAPENTIN 100 MG CAPSULE PO SCH ×3 (09:07→20:42)
[2022-02-04] MEDS: CALCIUM CARBONATE 1,250 MG/5 ML ORAL.SUSP PO SCH ×3 (09:08→20:48)
[2022-02-04] MEDS: TACROLIMUS 1 MG CAPSULE PO SCH ×2 (09:09→20:49)
[2022-02-04] MEDS: HEPARIN 5,000 UNIT/ML VIAL SQ SCH ×2 (09:09→20:42)
[2022-02-04] MEDS: MIDODRINE 5 MG TABLET PO SCH ×3 (09:10→20:41)
--- NOTE | 2022-02-04 13:36 | EKG ---
[facility] Test Date: 2022-02-01 Pat Name: Mike Moe Department: ICU Room: 116 Gender: Male Plastics Process Hand: : 1960 Requested By: Wild Kidd Order Number: [id number] Reading MD: Jamaal Pardo M.D. Measurements Intervals [place] Rate: 73 P: 19 PA: 156 QRS: 5 QRSD: 90 T: 24 QT: 414 QTc: 457 Interpretive Statements Sinus rhythm Atrial premature complexes Probable left atrial enlargement Electronically Signed On 02-04-2022 13:36:13 PDT by Jamaal Pardo M.D. /store/[email or web address]/[id number]/[id number]
[2022-02-04] MEDS: NICOTINE 21 MG PATCH TOPICAL SCH (17:18)
[2022-02-04] MEDS: SIMVASTATIN 40 MG TABLET PO SCH (20:41)
[2022-02-04] MEDS: traZODone HCL 50 MG TABLET PO PRN (20:42)
[2022-02-05] MEDS: 0.9 % SODIUM CHLORIDE 10 ML SYRINGE IV SCH ×3 (05:28→20:17)
--- NOTE | 2022-02-05 07:59 | Nephrology Progress Note ---
SUBJECTIVE Subjective Patient information: Note initiated : 02/05/22 at 7:58 am Patient: Mike Moe a 61 y/o M admitted on 01/30/22 for Fluid Overload/COVID +. Chief Complaint: Weakness Pertinent ROS: Weakness Constitutional Vitals: Vital Signs Temp Pulse Resp BP Pulse Ox 97.2 F 70 20 170/74 92 02/05/22 07:13 02/05/22 07:13 02/05/22 07:13 02/05/22 07:13 02/05/22 07:13 Period Temp Pulse Resp BP Sys/Ludwig Pulse Ox Last 24 Hr 96.6 F-97.8 F 55-100 18- 126-172/74-95 91-95 Intake and Output 02/04/22 02/05/22 02/05/22 21:59 05:59 13:59 Intake Total 970 420 Balance 970 420 Weight 159 lb 4.8 oz Intake & Output: Intake & Output 02/04/22 02/05/22 02/05/22 21:59 05:59 13:59 Intake Total 970 420 Balance 970 420 Weight 159 lb 4.8 oz Intake: Oral 970 420 Other: Meal Dinner snack: 4 grahm cracker packs Percent of Meal Consumed 75% 100% Feeding Ability Assist with Tray Set Up # Voids 2 General appearance: cooperative and no acute distress Head Head exam: Present normal inspection Eye Eye exam: Present normal appearance ENT ENT exam: Present mucous membranes moist Respiratory Respiratory exam: Absent respiratory distress Cardiovascular Cardiovascular exam: Present normal rate and rhythm GI/Abdominal GI/Abdominal exam: Present soft; Absent tenderness Extremities Exam Extremities exam: Absent joint swelling or pedal edema Neurological Exam Neurological exam: Present alert and oriented X3 Psychiatric Psychiatric exam: Present normal affect and normal mood Skin Skin exam: Present warm; Absent rash A/P Assessment and plan (1) ESRD on hemodialysis: Assessment and plan: Mike Moe is a 61-year-old male with end stage renal disease on hemodialysis admitted on 01/30/22. He is on hemodialysis Friday at [place]. His last dialysis was on Friday (01/28/2022). He was [facility] for [facility].He presented to [place] ED. He was transferred to our facility for hemodialysis. Nephrology consultation was requested for end stage renal disease. End stage renal disease on hemodialysis. Chronic hypotension on Midodrine 5 mg PO PRN with hemodialysis. Hyponatremia associated with ESRD and fluid overload. Hyperphosphatemia on Renvela 800 mg PO TID with meals and Calcium Carbonate 500 mg PO TID with meals. Left arm AV fistula. Chronic anemia due to ESRD. Liver transplant at [facility] on Tacrolimus 2 mg twice every 12 hours. Recommendations/Plan: next hemodialysis on Friday. Status: Chronic Time Spent With Patient Time: Total time spent is greater than 50% in coordination of care (as documented) at patient's floor/unit and/or counseling patient:
[2022-02-05] MEDS: ACETAMINOPHEN 500 MG TABLET PO SCH ×2 (08:07→20:16)
[2022-02-05] MEDS: PRAMIPEXOLE 0.25 MG TABLET PO SCH ×3 (08:07→20:15)
[2022-02-05] MEDS: HEPARIN 5,000 UNIT/ML VIAL SQ SCH ×2 (08:07→20:15)
[2022-02-05] MEDS: CLOPIDOGREL 75 MG TABLET PO SCH (08:07)
[2022-02-05] MEDS: CALCITRIOL 0.25 MCG CAPSULE PO SCH (08:07)
[2022-02-05] MEDS: OMEPRAZOLE 20 MG CAPSULE PO SCH ×2 (08:07→20:16)
[2022-02-05] MEDS: TACROLIMUS 1 MG CAPSULE PO SCH ×2 (08:07→20:25)
[2022-02-05] MEDS: LOPERAMIDE 2 MG CAPSULE PO SCH ×3 (08:07→21:33)
[2022-02-05] MEDS: MIDODRINE 5 MG TABLET PO SCH ×4 (08:08→20:23)
[2022-02-05] MEDS: rOPINIRole 0.25 MG TABLET PO SCH ×3 (08:08→20:16)
[2022-02-05] MEDS: CALCIUM CARBONATE 1,250 MG/5 ML ORAL.SUSP PO SCH ×5 (08:08→20:26)
[2022-02-05] MEDS: CETIRIZINE 10 MG TABLET PO SCH (08:08)
[2022-02-05] MEDS: GABAPENTIN 100 MG CAPSULE PO SCH ×3 (08:08→20:15)
[2022-02-05] MEDS: SERTRALINE 50 MG TABLET PO SCH (08:08)
[2022-02-05] MEDS: SEVELAMER 800 MG TABLET PO SCH ×3 (08:08→17:47)
--- NOTE | 2022-02-05 08:21 | Internal Med Progress Note ---
SUBJECTIVE Subjective Patient information: Note initiated : 02/05/22 at 8:20 am Service Date, if different from initiated Date: [] Patient: Mike Moe a 61 y/o M admitted on 01/30/22 for Fluid Overload/COVID +. Chief Complaint: [] Interval history: History of present illness: Mr. Moe is a 61 year old M history of end-stage renal disease on hemodialysis Friday, presenting with need for hemodialysis. His last dialysis session was 2 days ago on Friday, January 28, 2022. He was also being screened for COVID-pneumonia and he was actually screened at positive. Earlier today when he presented to the outpatient dialysis center for hemodialysis sections, he was being denied entry and was instead told to come to the hospital for dialysis sections. He ended up going to [facility] but they did not have dialysis capacity so they request patient to be transferred to our facility for hemodialysis. Of note, patient is currently on up to 4 L/min of supplemental oxygen's. Tools Programmer Dr. Rosa was contacted and he is willing to assist with hemodialysis tomorrow. 01/31: Afebrile overnight. Patient is currently on 5 L/min of supplemental oxygen. Patient is currently receiving hemodialysis. Patient is committing of shortness of breath. He is complaining of productive cough with clear sputum. He is committing of shaking chills. He denies any fever or diaphoresis. He denies any respiratory wheezings. Continue hemodialysis today and tomorrow as per military cook. Continue remdesivir and dexamethasone together with supplemental oxygen for treatment of COVID-pneumonia. 02/01: Afebrile overnight. The patient is currently on 4 L/min of supplemental oxygen's. Patient is currently receiving hemodialysis. Patient is complaining of improving degree of shortness of breath. He is complaining of productive c ough with clear sputum productions. He denies any subjective fever or shaking chills. Poor appetite. Mild general body weakness. After today's hemodialysis sections, the next section will be next Friday. Continue remdesivir and dexamethasone together with supplemental oxygen for treatment of COVID-pneumonia. 02/02 Patient sitting up in bed eating breakfast. No new complaints. On the telemetr y yesterday look like it might be some moments of A. fib, EKG with sinus with PACs. Patient would have a low [id number] score. Follow-up labs in the morning. Patient says he quit smoking today. Wears oxygen at home occasionally 2 L. Has stents in his heart he says. 02/03 No overnight event or new complaints. Dialysis per nephrology. Currently on room air. Leukopenia mildly improved. 02/04 Patient being set up for dialysis currently patient has no new pains or complaints. Remains on room air. 02/05 Patient seems to be doing well. I dialysis yesterday. No overnight event or new complaints. Still in COVID isolation. Review of Systems: denies headache/fever/chills/nausea/vomiting/chest or abdominal pain/diarrhea. Otherwise see above. Constitutional Vitals: Vital Signs Temp Pulse Resp BP Pulse Ox 97.2 F 70 20 170/74 92 02/05/22 07:13 02/05/22 07:13 02/05/22 07:13 02/05/22 07:13 02/05/22 07:13 Period Temp Pulse Resp BP Sys/Ludwig Pulse Ox Last 24 Hr 96.6 F-97.8 F 55-100 126-172/74-95 91-95 Intake and Output 02/04/22 02/05/22 02/05/22 21:59 05:59 13:59 Intake Total 970 420 Balance 970 420 Weight 72.257 kg Intake & Output: Intake & Output 02/04/22 02/05/22 02/05/22 21:59 05:59 13:59 Intake Total 970 420 Balance 970 420 Weight 72.257 kg Intake: Oral 970 420 Other: Meal Dinner snack: 4 grahm cracker packs Percent of Meal Consumed 75% 100% Feeding Ability Assist with Tray Set Up # Voids 2 Exam: General: Alert, Awake, No acute Distress Eyes/N/T: EOMI, Head/Neck: neck supple, CV: regular with occasional irregularity, No murmurs, Pulm: Clear b/l, no wheezing/rhonchi/rales Abd: soft, nontender, +BS x4 Ext: no clubbing/cyanosis/edema, AV fistula left arm. b/l BKA Neuro: Alert, no focal deficits, moves all extremities, Skin: warm/dry OBJ DATA Labs CBC & Chem 7: 02/03/22 05:44 02/04/22 05:29 Labs: Abnormal Lab Results 02/04/22 02/03/22 02/03/22 05:29 05:44 05:43 WBC 3.2 L RBC 3.05 L Hgb 9.7 L Hct 30.7 L MCV 100.7 H RDW 14.9 H Plt Count 106 L MPV 11.7 H Neut % (Auto) 78.9 H Lymph % (Auto) 14.2 L Lymph # (Auto) 0.45 L Sodium 131 L 129 L Chloride 91 L 91 L BUN 52 H 40 H Creatinine 6.0 H* 4.9 H Glucose 146 H 145 H Albumin 3.1 L Globulin 3.9 H Albumin/Globulin Ratio 0.8 L 0.9 L Triglycerides 190 H 221 H Meds: Medications Acetaminophen (Acetaminophen 325 Mg Tablet) 650 mg PO Q6HP PRN; Protocol PRN Reason: Per Pain Protocol/Fever > 101 Last Admin: 01/31/22 12:15 Dose: 650 mg Documented by: Acetaminophen (Acetaminophen 500 Mg Tablet) 1,000 mg PO BID [facility]; Protocol Last Admin: 02/05/22 08:07 Dose: 1,000 mg Documented by: Albuterol/Ipratropium (Ipratropium/Albuterol 3 Ml Ampul.Neb) 3 ml NEB Q4HRT PRN PRN Reason: Wheezing Calcitriol (Calcitriol 0.25 Mcg Capsule) 0.5 mcg PO DAILY [facility] Last Admin: 02/05/22 08:07 Dose: 0.5 mcg Documented by: Calcium Carbonate/Glycine (Calcium Carbonate 1,250 Mg/5 Ml Oral.Susp) 500 mg PO TID [facility] Last Admin: 02/05/22 08:08 Dose: 500 mg Documented by: Cetirizine HCl (Cetirizine 10 Mg Tablet) 5 mg PO DAILY [facility] Last Admin: 02/05/22 08:08 Dose: 5 mg Documented by: Clopidogrel Bisulfate (Clopidogrel 75 Mg Tablet) 75 mg PO DAILY [facility] Last Admin: 02/05/22 08:07 Dose: 75 mg Documented by: Gabapentin (Gabapentin 100 Mg Capsule) 100 mg PO TID [facility] Last Admin: 02/05/22 08:08 Dose: 100 mg Documented by: Guaifenesin (Guaifenesin/Dextromethorphan Oral Zehra) 10 ml PO Q4HP PRN PRN Reason: Cough Heparin Sodium (Porcine) (Heparin 5,000 Unit/Ml Vial) 5,000 unit SQ Q12 [facility] Last Admin: 02/05/22 08:07 Dose: 5,000 unit Documented by: Loperamide HCl (Loperamide 2 Mg Capsule) 2 mg PO PRN PRN PRN Reason: Diarrhea Last Admin: 01/31/22 00:14 Dose: 2 mg Documented by: Loperamide HCl (Loperamide 2 Mg Capsule) 4 mg PO BID [facility] Last Admin: 02/05/22 08:07 Dose: 4 mg Documented by: Melatonin (Melatonin 3 Mg Tablet) 3 mg PO HS PRN PRN Reason: Insomnia Metoprolol Tartrate (Metoprolol Tartrate 5 Mg/5 Ml Vial) 5 mg IV Q2HP PRN PRN Reason: Tachyarrhythmias HR>110 Midodrine (Midodrine 5 Mg Tablet) 5 mg PO PRN PRN PRN Reason: Hypotension Midodrine (Midodrine 5 Mg Tablet) 5 mg PO TID [facility] Last Admin: 02/05/22 08:08 Dose: Not Given Documented by: Nicotine (Nicotine 21 Mg Patch) 21 mg TOPICAL DAILY@1000 [facility] Last Admin: 02/04/22 17:18 Dose: 21 mg Documented by: Omeprazole (Omeprazole 20 Mg Capsule) 20 mg PO BID [facility] Last Admin: 02/05/22 08:07 Dose: 20 mg Documented by: Ondansetron HCl (Ondansetron 4 Mg/2 Ml Vial) 4 mg IV Q6HP PRN PRN Reason: Nausea And Vomiting Pramipexole Dihydrochloride (Pramipexole 0.25 Mg Tablet) 0.5 mg PO TID [facility] Last Admin: 02/05/22 08:07 Dose: 0.5 mg Documented by: Ropinirole HCl (Ropinirole 0.25 Mg Tablet) 0.5 mg PO TID [facility] Last Admin: 02/05/22 08:08 Dose: 0.5 mg Documented by: Sertraline HCl (Sertraline 50 Mg Tablet) 150 mg PO QDAY [facility] Last Admin: 02/05/22 08:08 Dose: 150 mg Documented by: Sevelamer Carbonate (Sevelamer 800 Mg Tablet) 800 mg PO TIDCC [facility] Last Admin: 02/05/22 08:08 Dose: 800 mg Documented by: Simvastatin (Simvastatin 40 Mg Tablet) 80 mg PO QHS [facility] Last Admin: 02/04/22 20:41 Dose: 80 mg Documented by: Sodium Chloride (0.9 % Sodium Chloride 10 Ml Syringe) 10 ml IV Q8 [facility] Last Admin: 02/05/22 05:28 Dose: 10 ml Documented by: Tacrolimus (Tacrolimus 1 Mg Capsule) 2 mg PO Q12 [facility] Last Admin: 02/05/22 08:07 Dose: 2 mg Documented by: Trazodone HCl (Trazodone Hcl 50 Mg Tablet) 25 mg PO HSP PRN PRN Reason: Insomnia Last Admin: 02/04/22 20:42 Dose: 25 mg Documented by: A/P Narrative A/P Narrative: Assessment and Plans: *ESRD on hemodialysis: -Tools Programmer Dr. Rosa consulted for dialysis needs, HD today then Friday *CoVID pneumonia with acute hypoxic Respiratory failure: -Isolation airborne and contact -Supplemental oxygen therapy, wean as able. now on Room Air -Dexamethasone/Remdesivir *COPD(occ uses 2L@home): *CAD w/stents: on plavix/statin *h/o Liver Transplant: on Tracrolimus *Leukopenia/thrombocytopenia: *Hyperkalemia: Resolved *Anemia, macrocytic normochromic, chronic: *GERD: *Depression: on SSRI *Tobacco abuse: Smoking cessation counseling, nicotine patch *Generalized weakness/deconditioning/debility: To SNF when cleared from COVID *ppx: Heparin / PPI Code status: Speech Therapist Technician Spent With Patient Time: Total time spent is greater than 50% in coordination of care (as documented) at patient's floor/unit and/or counseling patient: QUALITY VTE Deep Vein Thrombosis/Pulmonary Embolism Present on Admission: No
[2022-02-05] MEDS: NICOTINE 21 MG PATCH TOPICAL SCH (11:45)
[2022-02-05] MEDS: SIMVASTATIN 40 MG TABLET PO SCH (20:16)
[2022-02-06] MEDS: 0.9 % SODIUM CHLORIDE 10 ML SYRINGE IV SCH ×3 (05:01→20:38)
--- NOTE | 2022-02-06 07:09 | Nephrology Progress Note ---
SUBJECTIVE Subjective Patient information: Note initiated : 02/06/22 at 7:07 am Patient: Mike Moe a 61 y/o M admitted on 01/30/22 for Fluid Overload/COVID +. Chief Complaint: Weakness Pertinent ROS: Weakness Constitutional Vitals: Vital Signs Temp Pulse Resp BP Pulse Ox 97 F 62 18 138/58 96 02/06/22 03:59 02/06/22 03:59 02/06/22 03:59 02/06/22 04:02 02/06/22 03:59 Period Temp Pulse Resp BP Sys/Ludwig Pulse Ox Last 24 Hr 97 F-97.6 F 58-72 17-20 123-170/53-77 92-100 Intake and Output 02/05/22 02/06/22 02/06/22 21:59 05:59 13:59 Intake Total 150 Balance 150 Weight 159 lb 4.8 oz Intake & Output: Intake & Output 02/05/22 02/06/22 02/06/22 21:59 05:59 13:59 Intake Total 150 Balance 150 Weight 159 lb 4.8 oz Intake: Oral 150 Other: Meal Dinner Percent of Meal Consumed 75% Stool Size Large Stool Color Brown Bright Red Blood Stool Consistency Soft # Bowel Movements 1 General appearance: cooperative and no acute distress Head Head exam: Present normal inspection Eye Eye exam: Present normal appearance ENT ENT exam: Present mucous membranes moist Respiratory Respiratory exam: Absent respiratory distress Cardiovascular Cardiovascular exam: Present normal rate and rhythm GI/Abdominal GI/Abdominal exam: Present soft; Absent tenderness Extremities Exam Additional comments: Bilateral amputations Neurological Exam Neurological exam: Present alert and oriented X3 Psychiatric Psychiatric exam: Present normal affect and normal mood Skin Skin exam: Present warm; Absent rash A/P Assessment and plan (1) ESRD on hemodialysis: Assessment and plan: Mike Moe is a 61-year-old male with end stage renal disease on hemodialysis admitted on 01/30/22. He is on hemodialysis Friday at [facility]. His last dialysis was on Friday (01/28/2022). [facility]He presented to [facility]. He was transferred to our facility for hemodialysis. Nephrology consultation was requested for end stage renal disease. End stage renal disease on hemodialysis. Chronic hypotension on Midodrine 5 mg PO PRN with hemodialysis. Hyponatremia associated with ESRD and fluid overload. Hyperphosphatemia on Renvela 800 mg PO TID with meals and Calcium Carbonate 500 mg PO TID with meals. Left arm AV fistula. Chronic anemia due to ESRD. Liver transplant at [facility] on Tacrolimus 2 mg twice every 12 hours. Recommendations/Plan: Hemodialysis today. Next hemodialysis on or Friday if not discharged. Status: Chronic Time Spent With Patient Time: Total time spent is greater than 50% in coordination of care (as documented) at patient's floor/unit and/or counseling patient:
[2022-02-06] MEDS: CALCIUM CARBONATE 1,250 MG/5 ML ORAL.SUSP PO SCH ×3 (07:42→20:33)
[2022-02-06] MEDS: TACROLIMUS 1 MG CAPSULE PO SCH ×2 (07:43→20:34)
[2022-02-06] MEDS: LOPERAMIDE 2 MG CAPSULE PO SCH ×2 (07:43→20:37)
[2022-02-06] MEDS: GABAPENTIN 100 MG CAPSULE PO SCH ×3 (07:43→20:38)
[2022-02-06] MEDS: OMEPRAZOLE 20 MG CAPSULE PO SCH ×2 (07:43→20:36)
[2022-02-06] MEDS: ACETAMINOPHEN 500 MG TABLET PO SCH ×2 (07:43→20:36)
[2022-02-06] MEDS: HEPARIN 5,000 UNIT/ML VIAL SQ SCH ×2 (07:43→20:38)
[2022-02-06] MEDS: CALCITRIOL 0.25 MCG CAPSULE PO SCH (07:44)
[2022-02-06] MEDS: CLOPIDOGREL 75 MG TABLET PO SCH (07:44)
[2022-02-06] MEDS: PRAMIPEXOLE 0.25 MG TABLET PO SCH ×3 (07:44→20:36)
[2022-02-06] MEDS: CETIRIZINE 10 MG TABLET PO SCH (07:44)
[2022-02-06] MEDS: SERTRALINE 50 MG TABLET PO SCH (07:44)
[2022-02-06] MEDS: rOPINIRole 0.25 MG TABLET PO SCH ×3 (07:44→20:35)
[2022-02-06] MEDS: SEVELAMER 800 MG TABLET PO SCH ×3 (07:44→18:42)
--- NOTE | 2022-02-06 07:44 | Internal Med Progress Note ---
SUBJECTIVE Subjective Patient information: Note initiated : 02/06/22 at 7:44 am Service Date, if different from initiated Date: [] Patient: Mike Moe a 61 y/o M admitted on 01/30/22 for Fluid Overload/COVID +. Chief Complaint: [] Interval history: History of present illness: Mr. Moe is a 61 year old M history of end-stage renal disease on hemodialysis Friday, presenting with need for hemodialysis. His last dialysis session was 2 days ago on Friday, January 28, 2022. He was also being screened for COVID-pneumonia and he was actually screened at positive. Earlier today when he presented to the outpatient dialysis center for hemodialysis sections, he was being denied entry and was instead told to come to the hospital for dialysis sections. He ended up going to [facility] but they did not have dialysis capacity so they request patient to be transferred to our facility for hemodialysis. Of note, patient is currently on up to 4 L/min of supplemental oxygen's. [facility] Rosa was contacted and he is willing to assist with hemodialysis tomorrow. 01/31: Afebrile overnight. Patient is currently on 5 L/min of supplemental oxygen. Patient is currently receiving hemodialysis. Patient is committing of shortness of breath. He is complaining of productive cough with clear sputum. He is committing of shaking chills. He denies any fever or diaphoresis. He denies any respiratory wheezings. Continue hemodialysis today and tomorrow as per tongue lining stitcher. Continue remdesivir and dexamethasone together with supplemental oxygen for treatment of COVID-pneumonia. 02/01: Afebrile overnight. The patient is currently on 4 L/min of supplemental oxygen's. Patient is currently receiving hemodialysis. Patient is complaining of improving degree of shortness of breath. He is complaining of productive c ough with clear sputum productions. He denies any subjective fever or shaking chills. Poor appetite. Mild general body weakness. After today's hemodialysis sections, the next section will be next Friday. Continue remdesivir and dexamethasone together with supplemental oxygen for treatment of COVID-pneumonia. 02/02 Patient sitting up in bed eating breakfast. No new complaints. On the telemetr y yesterday look like it might be some moments of A. fib, EKG with sinus with PACs. Patient would have a low [id number] score. Follow-up labs in the morning. Patient says he quit smoking today. Wears oxygen at home occasionally 2 L. Has stents in his heart he says. 02/03 No overnight event or new complaints. Dialysis per nephrology. Currently on room air. Leukopenia mildly improved. 02/04 Patient being set up for dialysis currently patient has no new pains or complaints. Remains on room air. 02/05 Patient seems to be doing well. I dialysis yesterday. No overnight event or new complaints. Still in COVID isolation. 02/06 No overnight event or new complaints. Will get dialysis today. Review of Systems: denies headache/fever/chills/nausea/vomiting/chest or abdominal pain/diarrhea. Otherwise see above. Constitutional Vitals: Vital Signs Temp Pulse Resp BP Pulse Ox 97 F 72 17 128/70 91 02/06/22 07:27 02/06/22 07:27 02/06/22 07:27 02/06/22 07:27 02/06/22 07:27 Period Temp Pulse Resp BP Sys/Ludwig Pulse Ox Last 24 Hr 97 F-97.6 F 58-72 17-19 123-151/53-77 91-100 Intake and Output 02/05/22 02/06/22 02/06/22 21:59 05:59 13:59 Intake Total 150 Balance 150 Weight 72.257 kg Intake & Output: Intake & Output 02/05/22 02/06/22 02/06/22 21:59 05:59 13:59 Intake Total 150 Balance 150 Weight 72.257 kg Intake: Oral 150 Other: Meal Dinner Percent of Meal Consumed 75% Stool Size Large Stool Color Brown Bright Red Blood Stool Consistency Soft # Bowel Movements 1 Exam: General: Alert, Awake, No acute Distress Eyes/N/T: EOMI, Head/Neck: neck supple, CV: regular with occasional irregularity, No murmurs, Pulm: Clear b/l, no wheezing/rhonchi/rales Abd: soft, nontender, +BS x4 Ext: no clubbing/cyanosis/edema, AV fistula left arm. b/l BKA Neuro: Alert, no focal deficits, moves all extremities, Skin: warm/dry OBJ DATA Labs CBC & Chem 7: 02/03/22 05:44 02/04/22 05:29 Labs: Abnormal Lab Results 02/04/22 05:29 Sodium 131 L Chloride 91 L BUN 52 H Creatinine 6.0 H* Glucose 146 H Albumin 3.1 L Globulin 3.9 H Albumin/Globulin Ratio 0.8 L Triglycerides 190 H Meds: Medications Acetaminophen (Acetaminophen 325 Mg Tablet) 650 mg PO Q6HP PRN; Protocol PRN Reason: Per Pain Protocol/Fever > 101 Last Admin: 01/31/22 12:15 Dose: 650 mg Documented by: Acetaminophen (Acetaminophen 500 Mg Tablet) 1,000 mg PO BID [facility]; Protocol Last Admin: 02/05/22 20:16 Dose: 1,000 mg Documented by: Albuterol/Ipratropium (Ipratropium/Albuterol 3 Ml Ampul.Neb) 3 ml NEB Q4HRT PRN PRN Reason: Wheezing Calcitriol (Calcitriol 0.25 Mcg Capsule) 0.5 mcg PO DAILY [facility] Last Admin: 02/05/22 08:07 Dose: 0.5 mcg Documented by: Calcium Carbonate/Glycine (Calcium Carbonate 1,250 Mg/5 Ml Oral.Susp) 500 mg PO TID [facility] Last Admin: 02/05/22 20:26 Dose: 500 mg Documented by: Cetirizine HCl (Cetirizine 10 Mg Tablet) 5 mg PO DAILY [facility] Last Admin: 02/05/22 08:08 Dose: 5 mg Documented by: Clopidogrel Bisulfate (Clopidogrel 75 Mg Tablet) 75 mg PO DAILY [facility] Last Admin: 02/05/22 08:07 Dose: 75 mg Documented by: Gabapentin (Gabapentin 100 Mg Capsule) 100 mg PO TID [facility] Last Admin: 02/05/22 20:15 Dose: 100 mg Documented by: Guaifenesin (Guaifenesin/Dextromethorphan Oral Zehra) 10 ml PO Q4HP PRN PRN Reason: Cough Heparin Sodium (Porcine) (Heparin 5,000 Unit/Ml Vial) 5,000 unit SQ Q12 [facility] Last Admin: 02/05/22 20:15 Dose: Not Given Documented by: Loperamide HCl (Loperamide 2 Mg Capsule) 2 mg PO PRN PRN PRN Reason: Diarrhea Last Admin: 01/31/22 00:14 Dose: 2 mg Documented by: Loperamide HCl (Loperamide 2 Mg Capsule) 4 mg PO BID [facility] Last Admin: 02/05/22 21:33 Dose: Not Given Documented by: Melatonin (Melatonin 3 Mg Tablet) 3 mg PO HS PRN PRN Reason: Insomnia Last Admin: 02/05/22 20:16 Dose: 3 mg Documented by: Metoprolol Tartrate (Metoprolol Tartrate 5 Mg/5 Ml Vial) 5 mg IV Q2HP PRN PRN Reason: Tachyarrhythmias HR>110 Midodrine (Midodrine 5 Mg Tablet) 5 mg PO PRN PRN PRN Reason: Hypotension Midodrine (Midodrine 5 Mg Tablet) 5 mg PO TID [facility] Last Admin: 02/05/22 20:23 Dose: Not Given Documented by: Nicotine (Nicotine 21 Mg Patch) 21 mg TOPICAL DAILY@1000 [facility] Last Admin: 02/05/22 11:45 Dose: 21 mg Documented by: Omeprazole (Omeprazole 20 Mg Capsule) 20 mg PO BID [facility] Last Admin: 02/05/22 20:16 Dose: 20 mg Documented by: Ondansetron HCl (Ondansetron 4 Mg/2 Ml Vial) 4 mg IV Q6HP PRN PRN Reason: Nausea And Vomiting Pramipexole Dihydrochloride (Pramipexole 0.25 Mg Tablet) 0.5 mg PO TID [facility] Last Admin: 02/05/22 20:15 Dose: 0.5 mg Documented by: Ropinirole HCl (Ropinirole 0.25 Mg Tablet) 0.5 mg PO TID [facility] Last Admin: 02/05/22 20:16 Dose: 0.5 mg Documented by: Sertraline HCl (Sertraline 50 Mg Tablet) 150 mg PO QDAY [facility] Last Admin: 02/05/22 08:08 Dose: 150 mg Documented by: Sevelamer Carbonate (Sevelamer 800 Mg Tablet) 800 mg PO TIDCC [facility] Last Admin: 02/05/22 17:47 Dose: 800 mg Documented by: Simvastatin (Simvastatin 40 Mg Tablet) 80 mg PO QHS [facility] Last Admin: 02/05/22 20:16 Dose: 80 mg Documented by: Sodium Chloride (0.9 % Sodium Chloride 10 Ml Syringe) 10 ml IV Q8 [facility] Last Admin: 02/06/22 05:01 Dose: 10 ml Documented by: Tacrolimus (Tacrolimus 1 Mg Capsule) 2 mg PO Q12 [facility] Last Admin: 02/05/22 20:25 Dose: 2 mg Documented by: Trazodone HCl (Trazodone Hcl 50 Mg Tablet) 25 mg PO HSP PRN PRN Reason: Insomnia Last Admin: 02/04/22 20:42 Dose: 25 mg Documented by: A/P Narrative A/P Narrative: Assessment and Plans: *ESRD on hemodialysis: -[facility] Dr[facility] Rosa for dialysis/renal needs *CoVID pneumonia with acute hypoxic Respiratory failure: -Isolation airborne and contact -Supplemental oxygen therapy, wean as able. now on Room Air -Dexamethasone/Remdesivir *COPD(occ uses 2L@home): *CAD w/stents: on plavix/statin *h/o Liver Transplant: on Tracrolimus *Leukopenia/thrombocytopenia: *Hyperkalemia: Resolved *Anemia, macrocytic normochromic, chronic: *GERD: *Depression: on SSRI *Tobacco abuse: Smoking cessation counseling, nicotine patch *Generalized weakness/deconditioning/debility: To SNF when cleared from COVID *ppx: Heparin / PPI Code status: Parts Manager Spent With Patient Time: Total time spent is greater than 50% in coordination of care (as documented) at patient's floor/unit and/or counseling patient: QUALITY VTE Deep Vein Thrombosis/Pulmonary Embolism Present on Admission: No
[2022-02-06] MEDS: MIDODRINE 5 MG TABLET PO SCH ×3 (07:45→20:37)
[2022-02-06] MEDS: NICOTINE 21 MG PATCH TOPICAL SCH (10:58)
[2022-02-06] MEDS: SIMVASTATIN 40 MG TABLET PO SCH (20:35)
--- NOTE | 2022-02-07 05:57 | Nephrology Progress Note ---
SUBJECTIVE Subjective Patient information: Note initiated : 02/07/22 at 5:55 am Patient: Mike Moe a 61 y/o M admitted on 01/30/22 for Fluid Overload/COVID +. Chief Complaint: Weakness Pertinent ROS: Weakness Constitutional Vitals: Vital Signs Temp Pulse Resp BP Pulse Ox 98.1 F 72 16 109/62 93 02/07/22 00:00 02/07/22 00:00 02/07/22 00:00 02/07/22 00:00 02/07/22 00:00 Period Temp Pulse Resp BP Sys/Ludwig Pulse Ox Last 24 Hr 96.9 F-98.1 F 60-92 - 85-149/52-106 91-97 Intake and Output 02/06/22 02/06/22 02/07/22 13:59 21:59 05:59 Intake Total 650 300 Output Total 2420 Balance -1770 300 Weight 149 lb 8 oz Patient Weight 02/07/22 05:59 Weight 149 lb 8 oz Intake & Output: Intake & Output 02/06/22 02/06/22 02/07/22 13:59 21:59 05:59 Intake Total 650 300 Output Total 2420 Balance -1770 300 Weight 149 lb 8 oz Intake: Oral 650 300 Output: Hemodialysis UF 2420 Other: Meal Breakfast Dinner Percent of Meal Consumed 100% 75% General appearance: cooperative and no acute distress Head Head exam: Present normal inspection Eye Eye exam: Present normal appearance ENT ENT exam: Present mucous membranes moist Respiratory Respiratory exam: Absent respiratory distress Cardiovascular Cardiovascular exam: Present normal rate and rhythm GI/Abdominal GI/Abdominal exam: Present soft; Absent tenderness Extremities Exam Additional comments: bilateral amputations Neurological Exam Neurological exam: Present alert and oriented X3 Psychiatric Psychiatric exam: Present normal affect and normal mood Skin Skin exam: Present warm; Absent rash A/P Assessment and plan (1) ESRD on hemodialysis: Assessment and plan: Mike Moe is a 61-year-old male with end stage renal disease on hemodialysis admitted on 01/30/22. He is on hemodialysis Friday at [facility]. His last dialysis was on Friday (01/28/2022). He was tested positive for COVID and[facility].He presented to [facility] ED. He was transferred to our facility for hemodialysis. Nephrology consultation was requested for end stage renal disease. End stage renal disease on hemodialysis. Chronic hypotension on Midodrine 5 mg PO PRN with hemodialysis. Hyponatremia associated with ESRD and fluid overload. Hyperphosphatemia on Renvela 800 mg PO TID with meals and Calcium Carbonate 500 mg PO TID with meals. Left arm AV fistula. Chronic anemia due to ESRD. Liver transplant at [facility] on Tacrolimus 2 mg twice every 12 hours. Recommendations/Plan: Continue hemodialysis on Friday, Friday, Friday as outpatient. Status: Chronic Time Spent With Patient Time: Total time spent is greater than 50% in coordination of care (as documented) at patient's floor/unit and/or counseling patient:
[2022-02-07] MEDS: 0.9 % SODIUM CHLORIDE 10 ML SYRINGE IV SCH (07:12)
--- NOTE | 2022-02-07 08:51 | Discharge Summary ---
Discharge Provider Provider IMPORTANT FOLLOW-UP INFORMATION FOR PCP: Patient information: Note initiated : 02/07/22 at 8:49 am Service Date, if different from initiated Date: [] Patient: Mike Moe 61 y/o M admitted on 01/30/22 for Fluid Overload/COVID +. Chief Complaint: [] Date of admission: 01/30/22 22:22 Discharge date: 02/07/22 Primary care physician: PCP No Consults: 01/30/22 22:46 Consult to Physician [CONS] Routine Comment: Consulting Provider: Brian Rosa Reason For Exam: Physician to Consult COURSE Hospital Course Hospital course: ESRD on hemodialysis: -Graduating Machine Operator Dr. Rosa for dialysis/renal needs *CoVID pneumonia with acute hypoxic Respiratory failure: -Isolation airborne and contact -Supplemental oxygen therapy, wean as able. now on Room Air -Dexamethasone/Remdesivir *COPD(occ uses 2L@home): *CAD w/stents: on plavix/statin *h/o Liver Transplant: on Tracrolimus *Leukopenia/thrombocytopenia: *Hyperkalemia: Resolved *Anemia, macrocytic normochromic, chronic: *GERD: *Depression: on SSRI *Tobacco abuse: Smoking cessation counseling, nicotine patch *Generalized weakness/deconditioning/debility: To SNF when cleared from COVID *ppx: Heparin / PPI Mr. Moe is a 61 year old M history of end-stage renal disease on hemodialysis Friday, presenting with need for hemodialysis. His last dialysis session was 2 days ago on Friday, January 28, 2022. He was also being screened for COVID-pneumonia and he was actually screened at positive. Earlier today when he presented to the outpatient dialysis center for hemodialysis sections, he was being denied entry and was instead told to come to the hospital for dialysis sections. He ended up going to [facility] but they did not have dialysis capacity so they request patient to be transferred to our facility for hemodialysis. Of note, patient is currently on up to 4 L/min of supplemental oxygen's. Graduating Machine Operator Dr. Rosa was contacted and he is willing to assist with hemodialysis tomorrow. 01/31: Afebrile overnight. Patient is currently on 5 L/min of supplemental oxygen. Patient is currently receiving hemodialysis. Patient is committing of shortness of breath. He is complaining of productive cough with clear sputum. He is committing of shaking chills. He denies any fever or diaphoresis. He denies any respiratory wheezings. 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 Continue remdesivir and dexamethasone together with supplemental oxygen for treatment of COVID-pneumonia. 02/01: Afebrile overnight. The patient is currently on 4 L/min of supplemental oxygen's. Patient is currently receiving hemodialysis. Patient is complaining of improving degree of shortness of breath. He is complaining of productive cough with clear sputum productions. He denies any subjective fever or shaking chills. Poor appetite. Mild general body weakness. After today's hemodialysis sections, the next section will be next Friday. Continue remdesivir and dexamethasone together with supplemental oxygen for treatment of COVID-pneumonia. 02/02 Patient sitting up in bed eating breakfast. No new complaints. On the telemetry yesterday look like it might be some moments of A. fib, EKG with sinus with PACs. Patient would have a low [id number] score. Follow-up labs in the morning. Patient says he quit smoking today. Wears oxygen at home occasionally 2 L. Has stents in his heart he says. 02/03 No overnight event or new complaints. Dialysis per nephrology. Currently on room air. Leukopenia mildly improved. 02/04 Patient being set up for dialysis currently patient has no new pains or complaints. Remains on room air. 02/05 Patient seems to be doing well. I dialysis yesterday. No overnight event or new complaints. Still in COVID isolation. 02/06 No overnight event or new complaints. Will get dialysis today. Physical exam Head: No bruises, normal-appearing nontraumatic Eyes: normal appearance, no scleral icterus. Neck: full ROM Respiratory: no respiratory distress. Cardiovascular: normal rate and rhythm, S1, S2. GI/Abdominal: soft, nontender, no guarding. Extremities: full range of motion, nontender. Neurological: CN II-XII intact, intact motor, intact sensation. Psychiatric: normal mood. Skin: warm, normal color Discharge diagnosis: esrd, covid pneumonia Time Spent with Patient Time attestation: Total time spent providing and/or coordinating discharge services: Time spent: Greater than 30 minutes EXAM Constitutional Vitals: Temp Pulse Resp BP Pulse Ox 97.3 F 82 18 112/68 99 02/07/22 07:14 02/07/22 07:14 02/07/22 07:14 02/07/22 07:14 02/07/22 07:14 Discharge Plan Patient/Caregiver Discharge Instructions Activity: increase activity as tolerated Diet: Renal Instructions: COVID-19, Fluid Restriction (GEN), End Stage Kidney Disease (GEN) Activity Restrictions/Additional Instructions: Your prescriptions have electronically been sent to [facility] in [place], [place]. Any [facility] can access and distribute these for you. Please follow up with a Primary Care Physician at a [facility] as soon as possible. You are scheduled for Dialysis at the [facility] in [place] for a 2:00 run. Prescriptions: Continued trazodone 50 mg Tablet 50 mg PO QHS 0RF cetirizine 5 mg Tablet 5 mg PO DAILY 0RF melatonin 3 mg Tablet 3 mg PO HS PRN (Reason: Insomnia) 0RF clopidogrel 75 mg Tablet 75 mg PO DAILY 0RF acetaminophen 500 mg Tablet 1,000 mg PO BID 0RF pramipexole 0.5 mg Tablet 0.5 mg PO TID 0RF calcitriol 0.5 mcg Capsule 0.5 mcg PO DAILY 0RF ropinirole 0.5 mg Tablet 0.5 mg PO TID 0RF omeprazole 20 mg Capsule,Delayed Release(Dr/Ec) 20 mg PO BID 0RF calcium carbonate 500 mg calcium (1,250 mg) Tablet,Chewable 1,000 mg PO DAILY 0RF midodrine 2.5 mg Tablet 2.5 mg PO TID 0RF gabapentin 100 mg Capsule 100 mg PO TID 0RF epoetin quan 10,000 unit/mL Solution 10,000 unit IV 3XW 0RF sertraline 50 mg Tablet 150 mg PO QDAY 0RF tacrolimus 1 mg Capsule 2 mg PO Q12H 0RF rosuvastatin 20 mg Tablet 20 mg PO QHS 0RF sevelamer carbonate [Renvela] 800 mg Tablet 800 mg PO DAILY 0RF Rx Instructions: must administer with a meal/food (DME) blood sugar diagnostic 0RF loperamide 2 mg Capsule 4 mg PO BID 0RF Follow Up Plan Patient Disposition: Xfer SNF Rehab Potential: Fair I certify that the patient requires SNF services: Yes Overall status at discharge: patient is progressing back to baseline Discharge Orders: Discharge Order (Routine); Ordered 02/07/22 Ordered By: Luann RIOJAS VTE Deep Vein Thrombosis/Pulmonary Embolism Present on Admission: No
[2022-02-07] MEDS: NICOTINE 21 MG PATCH TOPICAL SCH (09:07)
[2022-02-07] MEDS: HEPARIN 5,000 UNIT/ML VIAL SQ SCH (09:07)
[2022-02-07] MEDS: OMEPRAZOLE 20 MG CAPSULE PO SCH (09:08)
[2022-02-07] MEDS: CLOPIDOGREL 75 MG TABLET PO SCH (09:08)
[2022-02-07] MEDS: SERTRALINE 50 MG TABLET PO SCH (09:08)
[2022-02-07] MEDS: SEVELAMER 800 MG TABLET PO SCH (09:08)
[2022-02-07] MEDS: rOPINIRole 0.25 MG TABLET PO SCH (09:09)
[2022-02-07] MEDS: ACETAMINOPHEN 500 MG TABLET PO SCH (09:09)
[2022-02-07] MEDS: LOPERAMIDE 2 MG CAPSULE PO SCH (09:09)
[2022-02-07] MEDS: GABAPENTIN 100 MG CAPSULE PO SCH (09:09)
[2022-02-07] MEDS: CALCITRIOL 0.25 MCG CAPSULE PO SCH (09:10)
[2022-02-07] MEDS: PRAMIPEXOLE 0.25 MG TABLET PO SCH (09:10)
[2022-02-07] MEDS: CETIRIZINE 10 MG TABLET PO SCH (09:10)
[2022-02-07] MEDS: MIDODRINE 5 MG TABLET PO SCH (09:10)
[2022-02-07] MEDS: TACROLIMUS 1 MG CAPSULE PO SCH (09:10)
[2022-02-07] MEDS: CALCIUM CARBONATE 1,250 MG/5 ML ORAL.SUSP PO SCH (09:11)
== END 2022-02-07 10:00 | disposition other institution (70) | DRG 177 ==
LOC: ICU 22:22
PROVIDERS: ADMIT Internal Medicine; ATTEND Internal Medicine